=== PATIENT | male | born 1950 | race Caucasian/White ===

== ENCOUNTER 2021-02-17 10:47 | Emergency (ER) | payer OTHER, MEDICARE ==
--- OUTSIDE RECORDS SUMMARY | 2021-02-17 10:50 | XMS REPORT | Continuity of Care Document ---
:1950 Author Organization [facility] t Address [address] [place] [address] Care Team Providers Name Role Phone Bin Jensen MD Primary Care Physician Nesha Attending Clinician [phone] Torito Godwin Attending Clinician Problems Condition Condition Condition Status Onset Resolution Last Treating Co mments Source Name Details Category Date Date Treatment Clinician Date Confusiona Problem Active 2021-02-06 M emoria l state 01:29:54 l (disorder) Charbel n Confusiona l state (disorder) Active Problem 02/06/2021 [facility] Diabetes Problem Active 2021-02-06 Mem oria mellitus 01:29:54 l (disorder) Diabetes He rmann mellitus (disorder) Active Problem 02/06/2021 [facility] Hypertensi Problem Active 2021-02-06 M emoria ve 01:29:54 l disorder, [place] systemic Hypertensi arterial ve (disorder) disorder, systemic arterial (disorder) Active Problem 02/06/2021 [facility] Hyperlipid Problem Active 2021-02-06 M emoria emia 01:29:54 l (disorder) Charbel n Hyperlipid emia (disorder) Active Problem 02/06/2021 [facility] Hypothyroi Problem Active 2021-02-06 M emoria dism 01:29:54 l (disorder) Charbel n Hypothyroi dism (disorder) Active Problem 02/06/2021 [facility] Morbid Problem Active 2021-02-06 Memor ia obesity 01:29:54 l (disorder) Morbid Herm brandyn obesity (disorder) Active Problem 02/06/2021 [facility] Transient Problem Active 2021-02-06 Me moria ischemic 01:29:54 l attack Rodney (disorder) Transient ischemic attack (disorder) Active Problem 02/06/2021 [facility] 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 seizure (disorder) Active Problem 02/06/2021 [facility] Hip pain Problem Active 2021-02-06 Mem oria (finding) 01:29:54 l Hip pain Charbel n (finding) Active Problem 02/06/2021 [facility] Lumbar Problem Active 2021-02-06 Memor ia radiculopa 01:29:54 l thy Lumbar Rodney (disorder) radiculopa thy (disorder) Active Problem 02/06/2021 [facility] Peripheral Problem Active 2021-02-06 M emoria nerve 01:29:54 l disease [place] (disorder) Peripheral nerve disease (disorder) Active Problem 02/06/2021 [facility] Spinal Problem Active 2021-02-06 Memor ia stenosis 01:29:54 l of lumbar Spinal Tea nn region stenosis (disorder) of lumbar region (disorder) Active Problem 02/06/2021 [facility] Allergies, Adverse Reactions, Alerts Allergy Allergy Status Severity Reaction(s) Onset Inactive Treating Comm ents Source Name Type Date Date Clinician Levoflox Propensi Active Anxiety [place] acin In ty to 2-06 [facility] D5w adverse 00:00: st reaction 00 s to drug Penicill Propensi Active Hives, 0 [place] in G ty to Shortness Of 2-06 Meth hilary adverse Breath 00:00: st reaction 00 s to drug penicill penicill Active Memori a in in l [place] Levaquin Levaquin Active Memori a l [place] Social History Social Habit Start Date Stop Date Quantity Comments Source Social History 2020-05-12 2020-05-12 Hillary onofre 21:08:54 21:08:54 Tobacco use and 2019-11-08 2019-11-08 Never used [facility] ethodist exposure 00:00:00 00:00:00 Alcohol intake 2019-11-08 2019-11-08 Lif[facility] thodist 00:00:00 00:00:00 non-drinker (finding) Sex Assigned At [birth year] [facility] ethodist 00:00:00 00:00:00 Smoking Status Start Date Stop Date Source Never smoker Kris hickey Medications Ordered Filled Start Stop Current Ordering Indication Dosage Frequency Signature Comments Components Source Medication Medication Date Date Medication? Clinician (SIG) Name Name pregabalin Yes 75 mg = 1 Me moria 75 MG Oral 3-23 cap, PO, l Capsule 14:28: BID, # 60 Tea nn [Lyrica] 00 cap, 3 Refill(s), Pharmacy: [facility] #[id number], 177.8, cm, 12/02/20 8:24:00 [employer], Height, 133.182, kg, 01/12/21 8:57:00 CDT, Weight QUEtiapine Yes 50 mg = 1 Me moria 50 mg oral 2-10 tab, PO, l tablet, 14:10: Bedtime, # Herm brandyn extended 00 30 tab, 1 release Refill(s) donepezil Yes 10 mg = 1 Mem oria 10 mg oral 2-10 tab, PO, l tablet 14:10: Daily, # [place] 00 30 tab, 0 Refill(s) Vitamin Yes 250 Memoria B-12 250 2-10 microgram l mcg oral 14:10: = 1 tab, Tea nn tablet 00 PO, Daily, 0 Refill(s) Levetiracet Yes 1,000 mg = Memoria am 500 MG 8-13 2 tab, PO, l Oral Tablet 20:45: BID, # 120 Rodney [Keppra] 00 tab, 1 Refill(s), [facility]acy: [id number], 172.72, cm, 05/12/20 15:44:00 CDT, Height, 125.455, kg, 05/12/20 15:44:00 CDT, Weight Levetiracet 2019- Yes 500 mg = 1 Memoria am 500 MG 8-07 tab, PO, l Oral Tablet 20:01: BID, # 180 Rodney [Keppra] 00 tab, 3 Refill(s), Pharmacy: [facility] #[id number], 172.72, cm, 05/12/20 15:44:00 CDT, Height, 125.455, kg, 05/12/20 15:44:00 CDT, Weight Levetiracet 2019-0 No 500 mg = 1 Memoria am 500 MG 8-07 tab, PO, l Oral Tablet 00:02: BID, X 30 H ermann [Keppra] 00 day, # 60 tab, 3 Refill(s), [id number], 172.72, cm, 05/12/20 15:44:00 CDT, Height, 125.455, kg, 05/12/20 15:44:00 CDT, Weight Lorazepam 2019-0 Yes See Memoria 0.5 MG Oral 7-31 Instructio l Tablet 17:49: ns, Take 1 Tea nn [Ativan] 00 tab po 1 hour prior to MRI, may repeat q 15 min. if still anxious, # 5 tab, 0 Refill(s), [id number], 172.72, cm, 05/12/20 15:44:00 CDT, Height, 125.455, kg, 05/12/20 15:44:00 CDT, Weight gabapentin Yes 600 mg = 1 M emoria 600 MG Oral 7-31 tab, PO, l Tablet 17:48: BID, # 60 Charbel n 00 tab, 1 Refill(s), [id number], 172.72, cm, 05/12/20 15:44:00 CDT, Height, 125.455, kg, 05/12/20 15:44:00 CDT, Weight Lorazepam 2019-0 Yes See Memoria 0.5 MG Oral 7-22 Instructio l Tablet 23:06: ns, Take 1 Tea nn [Ativan] 00 tab po 1 hour prior to MRI, may repeat q 15 min. if still anxious, # 5 tab, 0 Refill(s), [id number], 172.72, cm, 05/12/20 15:44:00 CDT, Height, 125.455, kg, 05/12/20 15:44:00 CDT, Weight Levothyroxi 2019-0 Yes 75 Memori a ne Sodium 7-21 microgram l 0.075 MG 20:09: = 1 tab, Tea nn Oral Tablet 00 PO, Daily, [Synthroid] 0 Refill(s) losartan 2020-0 Yes 100 mg = 1 Mem oria 100 mg oral 7-21 tab, PO, l tablet 20:09: Daily, 0 [place] 00 Refill(s) hydrochloro 2020-0 Yes 12.5 mg = M emoria thiazide 7-21 1 tab, PO, l 12.5 mg 20:09: Daily, 0 Charbel n oral tablet 00 Refill(s) Metformin 2020-0 Yes 1,000 mg = Me moria hydrochlori 7-21 1 tab, PO, l de 1000 MG 20:09: BID-Meals, H ermann Oral Tablet 00 # 30 tab, 0 Refill(s) Pravastatin 2020-0 Yes 40 mg = 1 M emoria Sodium 40 7-21 tab, PO, l MG Oral 20:09: Daily, 0 Charbel n Tablet 00 Refill(s) [Pravachol] allopurinol 2020-0 Yes 300 mg = 1 Memoria 300 mg oral 7-21 tab, PO, l tablet 20:09: Daily, 0 [place] 00 Refill(s) Aspirin 81 2020-0 Yes 81 mg = 1 Me moria MG Enteric 7-21 tab, PO, l Coated 20:09: Daily, # [place] Tablet 00 90 tab, 3 Refill(s) Trazodone 2020-0 Yes 50 mg = 1 Mem oria Hydrochlori 7-21 tab, PO, l de 50 MG 20:09: Bedtime, # Her [place] Oral Tablet 00 30 tab, 1 Refill(s) Alprazolam 2020-0 Yes 0.5 mg = 1 M emoria 0.5 MG Oral 7-21 tab, PO, l Tablet 20:09: BID, PRN Rod[place] 00 anxiety, stress, # 20 tab, 0 Refill(s) pravastatin 2020-0 Yes Brianne olivas (PRAVACHOL) 11-28 [facility] 40 MG 08:36: st tablet 57 co-enzyme 2020-0 Yes Kris Q-10 2-06 [facility] (COQ-10) 30 08:36: st mg capsule 57 vit 2020-0 Yes Kris C/E/Zn/thu - [facility] r/lutein/ze 08:36: st axan 57 (PRESERVISI ON AREDS-2 ORAL) cholecalcif 2020-0 Yes rBianne olivas taty, 2-06 [facility] vitamin D3, 08:36: st (VITAMIN 56 D3) 2,000 unit tablet cyanocobala 2020-0 Yes Brianne olivas min, 2-06 [facility] vitamin 08:36: st B-12, 56 (VITAMIN B-12) 1,000 mcg/mL drops hydroCHLORO 2020-0 Yes Brianne n thiazide 2-06 [facility] (MICROZIDE) 08:36: st 12.5 mg 56 capsule levothyroxi 2020-0 Yes Brianne olivas ne 2-06 [facility] (SYNTHROID) 08:36: st 75 mcg 56 tablet losartan 2020-0 Yes [place] (COZAAR) 2-06 [facility] 100 MG 08:36: st tablet 56 magnesium 2020-0 Yes [place] 250 mg 2-06 [facility] tablet 08:36: st 56 metFORMIN 2020-0 Yes [place] (GLUCOPHAGE 2- [facility] ) 1,000 mg 08:36: st tablet 56 omega 2020-0 Yes [place] 3-dha-epa-f 2-06 [facility] queenie oil 08:36: st (FISH OIL) 56 1,000 mg (120 mg-180 mg) capsule ALLOPURINOL 2020-0 Yes Brianne n ORAL 2-06 [facility] 08:36: st 55 aspirin 325 2020-0 Yes Brianne n MG buffered 2-06 [facility] tablet 08:36: st 55 Vital Signs Vital Name Observation Time Observation Value Comments Source Systolic (mm Hg) 2021-01-12 13:57:00 Lon rial [place] Diastolic (mm Hg) 2021[facility]12 [facility]:57[facility]:57[facility] 2021-01-12 13:57:00 [facility] [place] Weight 2021-01-12 13:57:00 [facility] Systolic (mm Hg) 2020-12-02 14:12:00 Lon rial [place] Diastolic (mm Hg) 2020-12-02 14:12:00 [facility] Rodney Heart Rate 2020-12-02 14:12:00 [facility] Height 2020-12-02 14:12:[address] [facility] Weight 2020-12-02 14:12:00 [facility] BMI Calculated 2020-12-02 14:12:00 Memori al [place] Respitory Rate 2020-05-12 20:44:00 Memori al [place] Height 2020-05-12 20:44:00 172.72 cm [facility] [place] Weight 2020-05-12 20:44:00 [facility] [place] BMI Calculated 2020-05-12 20:44:00 Memori al [place] Systolic (mm Hg) 2020-05-12 20:44:00 Lon rial [place] Diastolic (mm Hg) 2020-05-12 20:44:00 Mem orial [place] Heart Rate 2020-05-12 20:44:00 [facility] Procedures This patient has no known procedures. Plan of Care Planned Activity Planned Date Details Comments Source Future Scheduled 2021-05-23 INFLUENZA VACCINE [place] [facility] 00:00:00 [code = INFLUENZA VACCINE] Future Scheduled 2013 65+ PNEUMOCOCCAL [place] [facility] 00:00:00 VACCINE (1 of 1 - PPSV23) [code = 65+ PNEUMOCOCCAL VACCINE (1 of 1 - PPSV23)] Future Scheduled 1998 COLONOSCOPY SCREENING [place] [facility] 00:00:00 [code = COLONOSCOPY SCREENING] Future Scheduled 1998 SHINGLES VACCINES (#1) [place] [facility] 00:00:00 [code = SHINGLES VACCINES (#1)] Future Scheduled 1966 Hepatitis C screening [place] [facility] 00:00:00 (procedure) [code = 344988624] Future Scheduled 1964 COVID-19 VACCINE (1) [place] sim [facility] 00:00:00 [code = COVID-19 VACCINE (1)] Encounters Start End Encounter Admission Attending Care Care Encounter Source Date/Time Date/Time Type Type Clinicians Facility Department ID 2021-02-02 2021-02-03 Outpatient MHMISCHER MHMISCHER [id number] 12:55:54 23:59:59 02 2021-01-27 2021-01-27 [facility] [id number] 00:00:00 00:00:00 Emmy [id number] 2021-01-20 2021-01-21 Outpatient MHMISCHER MHMISCHER [id number] 11:30:19 23:59:59 2021-01-12 2021-01-12 Outpatient Citlali, MHMISCHER MHMISCHER [id number] 09:00:00 23:59:59 Kilo 04 Torito 2020-12-21 2020-12-21 Outpatient Nesha [facility] [id number] 00:00:00 00:00:00 Emmy [id number] 2020-12-21 2020-12-21 Outpatient Nesha [facility] [id number] 00:00:00 00:00:00 Emmy [id number] 2020-12-15 2020-12-16 Outpatient MHMISCHER MHMISCHER [id number] 08:46:31 23:59:59 2020-12-02 2020-12-02 Outpatient Citlali, MHMISCHER MHMISCHER [id number] 08:15:00 23:59:59 Kilo 03 Torito 2020-06-18 2020-06-18 Outpatient Citlali, MHMISCHER MHMISCHER [id number] 08:45:00 08:45:00 Kilo 01 Torito 2020-05-28 2020-05-28 Outpatient Citlali, MHMISCHER MHMISCHER [id number] 10:00:00 23:59:59 Kilo 02 Torito 2020-05-12 2020-05-12 Outpatient Citlali, MHMISCHER MHMISCHER [id number] 16:00:00 23:59:59 Kilo 00 Torito Results This patient has no known results.
[2021-02-17] MEDS ORDERED: HYDROCODONE/APAP 10/325 TAB ONE (13:06)
[2021-02-17] MEDS ORDERED: predniSONE 10 MG TAB ONE (13:19)
[2021-02-17] MEDS ORDERED: FAMOTIDINE 20 MG TAB ONE (13:19)
--- NOTE | 2021-02-17 14:06 | RAD REPORT ---
EXAM DESCRIPTION: RAD - Knee Right 3 View - 02/17/2021 1:59 pm CLINICAL HISTORY: PAIN COMPARISON: <Comparisons> FINDINGS: Mild osteoarthritic changes involves the medial joint space. No fracture or dislocation se en. No significant joint effusion. IMPRESSION: Mild medial compartment space osteoarthritis.
--- NOTE | 2021-02-17 15:57 | ER ---
Nurse's Notes [facility] Name: Omar Benitez Age: 70 yrs Sex: Male : 1950 Arrival Date: 02/17/2021 Time: 10:51 Bed 27 Private MD: Diagnosis: Pain in right knee;Osteoarthritis of knee Presentation: 02/17 11:24 Chief complaint: Patient states: Episodic R knee pain x 2 years. Pt reports that It ss became worse yesterday. Recently had a CT scan of his back with contrast and was told to hold his medication for two days, but now his medication is not helping. Coronavirus screen: Client denies travel out of the [place] in the last 14 days. Ebola Screen: Patient denies exposure to infectious person. Patient denies travel to an Ebola-affected area in the 21 days before illness onset. Initial Sepsis Screen: Does the patient meet any 2 criteria? No. Patient's initial sepsis screen is negative. Does the patient have a suspected source of infection? No. Patient's initial sepsis screen is negative. Risk Assessment: Do you want to hurt yourself or someone else? Patient reports no desire to harm self or others. Onset of symptoms was February 16, 2021. 11:24 Method Of Arrival: Wheelchair ss 11:24 Acuity: ELADIO 4 ss Historical: - Allergies: 11:28 PENICILLINS; ss 11:28 Levaquin; ss - Immunization history:: Adult Immunizations up to date. - Social history:: Smoking status: Patient denies any tobacco usage or history of. Screenin:57 Abuse screen: Denies threats or abuse. Nutritional screening: No deficits noted. kg Tuberculosis screening: No symptoms or risk factors identified. Fall Risk No fall in past 12 months (0 pts). No secondary diagnosis (0 pts). No IV (0 pts). Ambulatory Aid- None/Bed Rest/Nurse Assist (0 pts). Gait- Impaired (20 pts.). Mental Status- Oriented to own ability (0 pts). Assessment: 12:56 General: Appears in no apparent distress. Behavior is calm, cooperative, appropriate kg for age, quiet. Pain: Complains of pain in right knee Pain radiates to right leg Pain currently is 10 out of 10 on a pain scale. at worst was 10 out of 10 on a pain scale. level that patient reports is acceptable is 3 out of 10 on a pain scale. Quality of pain is described as aching, sharp, Pain began suddenly, Is intermittent, Alleviated by medications, rest, Aggravated by increased activity. Neuro: No deficits noted. Respiratory: No deficits noted. GI: No deficits noted. : No deficits noted. EENT: No deficits noted. Derm: No deficits noted. Musculoskeletal: No deficits noted. Vital Signs: 11:24 BP 105 / 80; Pulse 63; Resp 16; Temp 97.1(TE); Pulse Ox 98% on R/A; Weight 108.86 kg; ss Height 5 ft. 10 in. (177.80 cm); Pain 10/10; 14:29 BP 130 / 67; Pulse 60; Resp 18; Pulse Ox 100% on R/A; Pain 3/10; kg 15:45 BP 126 / 98; Pulse 85; Resp 20; Pulse Ox 97% on R/A; Pain 3/10; kg 11:24 Body Mass Index 34.44 (108.86 kg, 177.80 cm) ED Course: 10:51 Patient arrived in ED. mr 11:27 Triage completed. ss 11:28 Arm band placed on right wrist. ss 12:30 Paulino Clement MD is Attending Physician. kdr 12:46 Kathryn Riley is Primary Nurse. kg 12:58 Patient has correct armband on for positive identification. Fall risk band placed. Bed kg in low position. Call light in reach. Side rails up X2. 13:59 Knee Right 3 View XRAY In Process Unspecified. EDMS 16:00 No provider procedures requiring assistance completed. Patient did not have IV access kg during this emergency room visit. Administered Medications: 12:56 Drug: [place] (HYDROcodone-acetaminophen) 10 mg-325 mg 1 tabs Route: PO; kg 14:04 Follow up: Response: No adverse reaction; Pain is decreased kg 13:15 Drug: predniSONE 40 mg Route: PO; kg 14:04 Follow up: Response: No adverse reaction; Marked relief of symptoms kg 13:15 Drug: Pepcid (famotidine) 20 mg Route: PO; kg 14:04 Follow up: Response: No adverse reaction; Marked relief of symptoms kg Output: 14:00 Urine: 220ml (Voided); Total: 220ml. kg Outcome: 15:57 Discharge ordered by . kdr 16:00 Discharged to home via wheelchair, with family. kg 16:00 Condition: improved 16:00 Discharge instructions given to patient, family, Instructed on discharge instructions, follow up and referral plans. Demonstrated understanding of instructions, follow-up care, medications, Prescriptions given X 3. 16:09 Patient left the ED. kg Signatures: Dispatcher [employer] EDMS Paulino Clement MD MD kdr Rivera, Hoa mr Vinita Rose RN RN Kathryn Chamberlain kg
--- NOTE | 2021-02-17 15:58 | EDPHYS ---
Physician Documentation [facility] Name: Omar Benitez Age: 70 yrs Sex: Male : 1950 Arrival Date: 02/17/2021 Time: 10:51 Bed 27 Private MD: ED Physician Paulino Clement HPI: 02/17 12:49 This 70 yrs old Male presents to ER via Wheelchair with complaints of Leg kdr Pain. 12:49 The patient presents with decreased range of motion, pain. The complaints affect the kdr right knee. Context: The problem was sustained at home, resulted from an unknown cause, the patient can partially bear weight, must have assistance, from family, Problem is a result from a previous injury: No. Onset: The symptoms/episode began/occurred Has been intermittent for several years but fir he last two days, it has been moderate to severe. Modifying factors: The symptoms are alleviated by nothing. the symptoms are aggravated by movement, weight bearing. Associated signs and symptoms: The patient has no apparent associated signs or symptoms. Treatment prior to arrival includes: no previous treatment, over the counter medications. Severity of symptoms: At their worst the symptoms were severe, incapacitating, in the emergency department the symptoms have improved, mildly. The patient has experienced similar episodes in the past, multiple times, but today's symptoms are worse. The patient has been recently seen by a physician: had a lumbar myelogram yesterday before the pain became severe.. Historical: - Allergies: 11:28 PENICILLINS; ss 11:28 Levaquin; ss - Immunization history:: Adult Immunizations up to date. - Social history:: Smoking status: Patient denies any tobacco usage or history of. ROS: 02/18 14:38 Constitutional: Negative for fever, chills, and weight loss, Eyes: Negative for injury, kdr pain, redness, and discharge, ENT: Negative for injury, pain, and discharge, Neck: Negative for injury, pain, and swelling, Cardiovascular: Negative for chest pain, palpitations, and edema, Respiratory: Negative for shortness of breath, cough, wheezing, and pleuritic chest pain, Abdomen/GI: Negative for abdominal pain, nausea, vomiting, diarrhea, and constipation, Back: Negative for injury and pain, : Negative for injury, bleeding, discharge, and swelling, Skin: Negative for injury, rash, and discoloration, Neuro: Negative for headache, weakness, numbness, tingling, and seizure activity. Psych: Negative for depression, anxiety, suicide ideation, homicidal ideation, and hallucinations, Allergy/Immunology: Negative for hives, rash, and allergies, Endocrine: Negative for neck swelling, polydipsia, polyuria, polyphagia, and marked weight changes, Hematologic/Lymphatic: Negative for swollen nodes, abnormal bleeding, and unusual bruising. MS/extremity: Positive for decreased range of motion, pain, of the right knee, Negative for contusion, deformity, ecchymosis, erythema, laceration, paresthesias, swelling. Exam: 14:38 Constitutional: This is a well developed, well nourished patient who is awake, alert, kdr and in no acute distress. Head/Face: Normocephalic, atraumatic. Eyes: Pupils equal round and reactive to light, extra-ocular motions intact. Lids and lashes normal. Conjunctiva and sclera are non-icteric and not injected. Cornea within normal limits. Periorbital areas with no swelling, redness, or edema. Neck: Trachea midline, no thyromegaly or masses palpated, and no cervical lymphadenopathy. Supple, full range of motion without nuchal rigidity, or vertebral point tenderness. No Meningismus. Chest/axilla: Normal chest wall appearance and motion. Nontender with no deformity. No lesions are appreciated. Cardiovascular: Regular rate and rhythm with a normal S1 and S2. No gallops, murmurs, or rubs. Normal PMI, no JVD. No pulse deficits. Respiratory: Lungs have equal breath sounds bilaterally, clear to auscultation and percussion. No rales, rhonchi or wheezes noted. No increased work of breathing, no retractions or nasal flaring. Abdomen/GI: Soft, non-tender, with normal bowel sounds. No distension or tympany. No guarding or rebound. No evidence of tenderness throughout. Back: No spinal tenderness. No costovertebral tenderness. Full range of motion. Skin: Warm, dry with normal turgor. Normal color with no rashes, no lesions, and no evidence of cellulitis. Neuro: Awake and alert, GCS 15, oriented to person, place, time, and situation. Cranial nerves II-XII grossly intact. Motor strength 5/5 in all extremities. Sensory grossly intact. Cerebellar exam normal. Normal gait. Psych: Awake, alert, with orientation to person, place and time. Behavior, mood, and affect are within normal limits. 14:38 Musculoskeletal/extremity: Extremities: grossly normal except: noted in the right knee: decreased ROM, pain. Vital Signs: 02/17 11:24 BP 105 / 80; Pulse 63; Resp 16; Temp 97.1(TE); Pulse Ox 98% on R/A; Weight 108.86 kg; ss Height 5 ft. 10 in. (177.80 cm); Pain 10/10; 14:29 BP 130 / 67; Pulse 60; Resp 18; Pulse Ox 100% on R/A; Pain 3/10; kg 15:45 BP 126 / 98; Pulse 85; Resp 20; Pulse Ox 97% on R/A; Pain 3/10; kg 11:24 Body Mass Index 34.44 (108.86 kg, 177.80 cm) ss MDM: 15:57 Patient medically screened. kdr 02/18 14:38 Data reviewed: vital signs, nurses notes, radiologic studies. Counseling: I had a kdr detailed discussion with the patient and/or guardian regarding: the historical points, exam findings, and any diagnostic results supporting the discharge/admit diagnosis, radiology results, the need for outpatient follow up. 02/17 12:48 Order name: Knee Right 3 View XRAY; Complete Time: 15:52 kdr Administered Medications: 02/17 12:56 Drug: [place] (HYDROcodone-acetaminophen) 10 mg-325 mg 1 tabs Route: PO; kg 14:04 Follow up: Response: No adverse reaction; Pain is decreased kg 13:15 Drug: predniSONE 40 mg Route: PO; kg 14:04 Follow up: Response: No adverse reaction; Marked relief of symptoms kg 13:15 Drug: Pepcid (famotidine) 20 mg Route: PO; kg 14:04 Follow up: Response: No adverse reaction; Marked relief of symptoms kg Disposition: 02/17/21 15:57 Discharged to Home. Impression: Pain in right knee, Osteoarthritis of knee. - Condition is Stable. - Discharge Instructions: Arthritis, Knee Pain, Ueqh-[id number], Joint Pain, [id number]. - Prescriptions for Ibuprofen 800 mg Oral Tablet - take 1 tablet by ORAL route every 12 hours As needed take with food; 20 tablet. Tylenol- Codeine #3 300-30 mg Oral Tablet - take 2 tablets by ORAL route every 4-6 hours As needed Take in the evening for pain prior to sleep; 12 tablet. Medrol (Nik) 4 mg Oral Tablets, Dose Pack - take 1 tablet by ORAL route as directed - follow package instructions; 1 packet. - Medication Reconciliation Form, Thank You Letter, Prescription Opioid Use form. - Follow up: Private Physician; When: 2 - 3 days; Reason: If symptoms return, Further diagnostic work-up, Recheck today's complaints, Continuance of care, Re-evaluation by your physician. - Problem is new. - Symptoms have improved. Signatures: Dispatcher [employer] EDMS Paulino Clement MD MD kdr Vinita Rose RN RN ss Kathryn Riley kg Corrections: (The following items were deleted from the chart) 16:09 15:57 02/17/2021 15:57 Discharged to Home. Impression: Pain in right knee; kg Osteoarthritis of knee. Condition is Stable. Forms are Medication Reconciliation Form, Thank You Letter, Antibiotic Education, Prescription Opioid Use. Follow up: Private Physician; When: 2 - 3 days; Reason: If symptoms return, Further diagnostic work-up, Recheck today's complaints, Continuance of care, Re-evaluation by your physician. Problem is new. Symptoms have improved. kdr
[2021-02-17 16:22] VITALS: TEMP 97.1
[2021-02-17 16:25] VITALS: BP 126/98; O2SAT 97
== END 2021-02-17 16:09 | disposition home or self-care (01) ==
LOC: ER 10:47
DX: M17.11 Unilateral primary osteoarthritis, right knee (principal); Z88.0 Allergy status to penicillin; Z88.1 Allergy status to other antibiotic agents
CPT/HCPCS: 99283; J7512

== ENCOUNTER → 2023-12-17 | Emergency (ER) | payer OTHER, MEDICARE ==
--- NOTE | 2023-12-17 20:52 | RAD REPORT ---
EXAM DESCRIPTION: CT - Head C Spine Mpr Wo Con - 12/17/2023 8:32 pm CLINICAL HISTORY: Head and neck injury status post fall. Head and neck pain COMPARISON: [address] TECHNIQUE: Computed axial tomography of the head and cervical spine was obtained. Sagittal and coronal reconstruction was performed. All CT scans are performed using dose optimization technique as appropriate and may include automated exposure control or mA/KV adjustment according to patient size. FINDINGS: An intracranial bleed is not seen. The ventricles are normal in caliber. No significant hypodensity within the brain. An extra-axial fluid collection is not noted. Fluid within the visualized sinuses and mastoids is not seen A cervical fracture is not visualized. No dislocation is noted. Prominent ossification anterior and p osterior longitudinal ligaments Mild anterior subluxation C6 on C7 IMPRESSION: No acute intracranial abnormality is seen. A cervical fracture is not visualized. If the patient continues to have symptoms to suggest intracranial /spinal cord pathology then MRI wou ld be recommended
--- NOTE | 2023-12-17 20:56 | RAD REPORT ---
EXAM DESCRIPTION: RAD - Pelvis - 12/17/2023 8:22 pm CLINICAL HISTORY: Pelvic pain status post injury FINDINGS: No fracture or dislocation is seen. Bones are osteoporotic Marked osteoarthritis left hip If the patient continues to have symptoms to suggest an occult fracture then MRI would be recommended
--- NOTE | 2023-12-17 23:21 | RAD REPORT ---
EXAM DESCRIPTION: Alexander Single View12/17/2023 8:23 pm CLINICAL HISTORY: Chest pain COMPARISON: none FINDINGS: The lungs appear clear of acute infiltrate. The heart is mildly enlarged IMPRESSION: No acute abnormalities displayed
--- NOTE | 2023-12-17 23:24 | EDPHYS ---
Physician Documentation [facility] Name: Omar Benitez Age: 73 yrs Sex: Male : 1950 Arrival Date: 12/17/2023 Time: 19:54 Bed 2 Private MD: ED Physician Frank Aparicio HPI: 12/17 20:06 This 73 yrs old Male presents to ER via Unassigned with complaints of fall, possible ec2 head injury. 20:07 Patient arrives today for evaluation after ground-level fall. Patient reports that he ec2 had a fall and may have hit his head. Reported EMS that he had maybe some left hip pain. No LOC reported, no blood thinners documented. Patient with history of dementia otherwise. Denies any chest pain or difficulty breathing, denies abdominal pain, denies any nausea or vomiting. He states overall he feels at his normal level however wanted to be checked out.. Historical: - Allergies: 20:12 Levaquin; tm6 20:12 PENICILLINS; tm6 - PMHx: 20:12 ptsd; Diabetes mellitus; Hypertensive disorder; Hypercholesterolemia; Cellulitis; tm6 Hypothyroidism; insomnia; Osteoarthritis; - Immunization history:: Adult Immunizations up to date. - Social history:: Smoking status: Patient denies any tobacco usage or history of. Patient/guardian denies using alcohol. ROS: 20:07 Constitutional: as per hpi ec2 Exam: 20:07 Constitutional: GEN: No acute distress HEENT: -Head: no deformities -Eyes: EOMI CV: ec2 regular rate LUNGS: no respiratory distress ABD: non-tender SKIN: no wounds appreciated MSK: No C/T/L spine deformities RUE w/o bony deformity LUE w/o bony deformity RLE w/o bony deformity LLE w/o bony deformity NEURO: moves all extremities equally Vital Signs: 20:11 BP 101 / 87; Pulse 57; Resp 20; Temp 98(TE); Pulse Ox 98% on R/A; Weight 107.5 kg; tm6 Height 5 ft. 8 in. ; Pain 10/10; 21:33 BP 113 / 97; Pulse 49; Pulse Ox 97% on R/A; Pain 0/10; tm6 23:39 BP 101 / 62; Pulse 47; Resp 19; Temp 97.5(TE); Pulse Ox 99% on R/A; Pain 0/10; tm6 20:11 Body Mass Index 36.04 (107.50 kg, 172.72 cm) tm6 20:11 Pain Scale: Adult tm6 21:33 Pain Scale: Adult tm6 23:39 Pain Scale: Adult tm6 MDM: 20:02 Patient medically screened. ec2 20:07 ED course: Patient arrives today for evaluation after ground-level fall. Examination ec2 remarkable for well-appearing nontoxic individual is otherwise in no acute distress with a reassuring traumatic examination. Will obtain CT scan of the head and C-spine given the unknown circumstances as well as a chest and pelvis x-ray. Ultimately patient has no specific concerns at this time, no reported prodromal symptoms, denies any chest pain or difficulty breathing, or suspicion for ACS or PE or dissection as well.. 22:21 Data reviewed: vital signs. ED course: CT scan of the head and C-spine showed no acute ec2 traumatic process. Pelvis x-ray shows arthritis without bony fracture. . 23:12 ED course: Chest x-ray shows no acute intrathoracic process. Patient well-appearing and ec2 asking to go home, will discharge home. Return precautions given.. 12/17 20:06 Order name: CT Head C Spine; Complete Time: 22:20 ec2 12/17 20:06 Order name: Pelvis XRAY; Complete Time: 22:20 ec2 12/17 20:06 Order name: CXR XRAY; Complete Time: 23:23 ec2 Administered Medications: No medications were administered Disposition Summary: 12/17/23 23:23 Discharge Ordered Notes: Location: Home ec2 Condition: Stable ec2 Diagnosis - Fall on same level, unspecified ec2 Followup: ec2 - With: Private Physician - When: - Reason: Re-evaluation by your physician Discharge Instructions: - Discharge Summary Sheet ec2 - Fall Prevention in the Home, Adult, [id number] ec2 Forms: - Medication Reconciliation Form ec2 - Thank You Letter ec2 - Antibiotic Education ec2 - Prescription Opioid Use ec2 - Patient Portal Instructions ec2 - Leadership Thank You Letter ec2 Signatures: Dispatcher [employer] Frank Worthington MD MD ec2 Mansi Cedeno RN RN tm6
--- NOTE | 2023-12-17 23:24 | ER ---
Nurse's Notes [facility] Name: Omar Benitez Age: 73 yrs Sex: Male : 1950 Arrival Date: 12/17/2023 Time: 19:54 Bed 2 Private MD: Diagnosis: Fall on same level, unspecified Presentation: 12/17 20:11 Chief complaint: EMS states: unwitnessed fall at [facility]. Patient states he hit his tm6 head. No complaint of pain in head. Complaining of pain in right hip. Coronavirus screen: Vaccine status: Patient reports receiving the 2nd dose of the covid vaccine. Ebola Screen: Patient negative for fever greater than or equal to 101.5 degrees Fahrenheit, and additional compatible Ebola Virus Disease symptoms Patient denies exposure to infectious person. Patient denies travel to an Ebola-affected area in the 21 days before illness onset. No symptoms or risks identified at this time. Initial Sepsis Screen: Does the patient meet any 2 criteria? No. Patient's initial sepsis screen is negative. Does the patient have a suspected source of infection? No. Patient's initial sepsis screen is negative. Risk Assessment: Do you want to hurt yourself or someone else? Patient reports no desire to harm self or others. Onset of symptoms was December 17, 2023. 20:11 Method Of Arrival: EMS: [facility] tm6 20:11 Acuity: ELADIO 3 tm6 Triage Assessment: 20:12 General: Appears in no apparent distress. Behavior is calm, cooperative. Pain: tm6 Complains of pain in right hip Pain currently is 10 out of 10 on a pain scale. Quality of pain is described as aching, Pain began 1 hour ago. EENT: No signs and/or symptoms were reported regarding the EENT system. Neuro: Level of Consciousness is awake, alert, obeys commands, Oriented to person, dementia. Cardiovascular: Capillary refill < 3 seconds Patient's skin is warm and dry. Respiratory: Airway is patent Respiratory effort is even, unlabored, Respiratory pattern is regular, symmetrical. GI: Abdomen is flat, non-distended. GI: No signs and/or symptoms were reported involving the gastrointestinal system. : No signs and/or symptoms were reported regarding the genitourinary system. Derm: No signs and/or symptoms reported regarding the dermatologic system. Musculoskeletal: Reports pain in right hip unwitnessed fall. Historical: - Allergies: 20:12 Levaquin; tm6 20:12 PENICILLINS; tm6 - PMHx: 20:12 ptsd; Diabetes mellitus; Hypertensive disorder; Hypercholesterolemia; Cellulitis; tm6 Hypothyroidism; insomnia; Osteoarthritis; - Immunization history:: Adult Immunizations up to date. - Social history:: Smoking status: Patient denies any tobacco usage or history of. Patient/guardian denies using alcohol. Screenin:17 [facility] ED Fall Risk Assessment (Adult) History of falling in the last 3 months, tm6 including since admission Yes- single mechanical fall (1 pt) Confusion or Disorientation Yes (5 pts) Intoxicated or Sedated No (0 pts) Impaired Gait No (0 pts) Mobility Assist Device Used No (0 pt) Altered Elimination No (0 pt) Score/Fall Risk Level 3 or more points = High Risk Oriented to surroundings, Maintained a safe environment. Abuse screen: Denies threats or abuse. Denies injuries from another. Nutritional screening: No deficits noted. Tuberculosis screening: No symptoms or risk factors identified. Assessment: 20:17 Reassessment: see triage assessment. tm6 21:11 Reassessment: Pt incontinent of urine. Pt cleaned, new brief applied. tl4 21:50 Reassessment: Patient appears in no apparent distress at this time. No changes from tm6 previously documented assessment. Patient and/or family updated on plan of care and expected duration. Pain level reassessed. Patient is alert, oriented x 3, equal unlabored respirations, skin warm/dry/pink. 22:52 Reassessment: Patient and/or family updated on plan of care and expected duration. Pain tm6 level reassessed. Patient is alert, oriented x 3, equal unlabored respirations, skin warm/dry/pink. 23:39 Reassessment: Patient appears in no apparent distress at this time. No changes from tm6 previously documented assessment. Patient and/or family updated on plan of care and expected duration. Pain level reassessed. Patient is alert, oriented x 3, equal unlabored respirations, skin warm/dry/pink. 23:40 Reassessment: report called to [facility], given to Ambika. tm6 Vital Signs: 20:11 BP 101 / 87; Pulse 57; Resp 20; Temp 98(TE); Pulse Ox 98% on R/A; Weight 107.5 kg; tm6 Height 5 ft. 8 in. ; Pain 10/10; 21:33 BP 113 / 97; Pulse 49; Pulse Ox 97% on R/A; Pain 0/10; tm6 23:39 BP 101 / 62; Pulse 47; Resp 19; Temp 97.5(TE); Pulse Ox 99% on R/A; Pain 0/10; tm6 20:11 Body Mass Index 36.04 (107.50 kg, 172.72 cm) tm6 20:11 Pain Scale: Adult tm6 21:33 Pain Scale: Adult tm6 23:39 Pain Scale: Adult tm6 ED Course: 19:58 Patient arrived in ED. rv1 20:02 Frank Aparicio MD is Attending Physician. ec2 20:11 Mansi Cedeno, RN is Primary Nurse. tm6 20:12 Triage completed. tm6 20:17 Arm band placed on right wrist. tm6 20:17 Patient has correct armband on for positive identification. Bed in low position. Call tm6 light in reach. Side rails up X2. Provided Education on: plan of care. Client placed on continuous cardiac and pulse oximetry monitoring. NIBP monitoring applied. Pulse ox on. NIBP on. Door closed. Noise minimized. Warm blanket given. 20:24 Pelvis XRAY In Process Unspecified. EDMS 20:24 CXR XRAY In Process Unspecified. EDMS 20:33 CT Head C Spine In Process Unspecified. EDMS 23:39 No provider procedures requiring assistance completed. Patient did not have IV access tm6 during this emergency room visit. Administered Medications: No medications were administered Medication: 20:17 VIS not applicable for this client. tm6 Outcome: 23:23 Discharge ordered by . ec2 23:39 Discharged to home via wheelchair, with family, tm6 23:39 Condition: stable 23:39 Discharge instructions given to patient, family, Instructed on discharge instructions, follow up and referral plans. Demonstrated understanding of instructions, follow-up care, 23:40 Patient left the ED. tm6 Signatures: Dispatcher [employer] ED Yifan Sonja rv1 Frank Aparicio MD MD ec2 Mansi Cedeno, RN RN tm6 LogdaHarpreet RN RN tl4
[2023-12-18 01:38] VITALS: BP 101/62; TEMP 97.5; O2SAT 99
== END ==
LOC: ER 19:54
DX: M25.551 Pain in right hip (principal); W18.30XA Fall on same level, unspecified, initial encounter; E11.9 Type 2 diabetes mellitus without complications; I10 Essential (primary) hypertension; Z88.0 Allergy status to penicillin; Z88.1 Allergy status to other antibiotic agents
CPT/HCPCS: 70450; 71045; 72125; 72170; 99283

== ENCOUNTER 2024-01-01 18:00 | Inpatient (IN) | payer OTHER, MEDICARE ==
--- NOTE | 2024-01-01 20:07 | RAD REPORT ---
EXAM DESCRIPTION: Alexander Single View01/01/2024 7:49 pm CLINICAL HISTORY: Chest pain COMPARISON: November 2023 FINDINGS: The lungs appear clear of acute infiltrate. The heart is probably mildly enlarged IMPRESSION: No acute abnormalities displayed
--- NOTE | 2024-01-01 20:25 | RAD REPORT ---
EXAM DESCRIPTION: USExtrem Venous W Compress Bil01/01/2024 8:13 pm CLINICAL HISTORY: Leg swelling COMPARISON: 2019 FINDINGS: The common femoral, superficial femoral, greater saphenous, popliteal and posterior tibial veins bilaterally are compressible and demonstrate augmentation. Doppler demonstrates good flow. Grayscale, color and spectral analysis performed on all vessels IMPRESSION: No evidence of deep venous thrombosis involving either lower extremity.
[2024-01-01 21:03] LABS: Absolute Eosinophils 0.2 K/uL (0-0.5); Absolute Lymphocytes (CBC) 0.6 K/uL (0.7-4.9); Absolute Monocytes 0.6 K/uL (0.1-1.3); Basophils % 0.5 % (0-1.3); Eosinophils % 3.2 % (0-4.4); Hematocrit 37.7 % (39.6-49.0); Hemoglobin 13.1 g/dL (13.6-17.9); Lymphocytes % 11.5 % (15.3-44.8); MCH 34.9 pg (27.0-35.0); MCHC 34.8 g/dL (32.0-36.0); MCV 100.3 fL (80-100); MPV 9.8 fL (7.6-11.3); Monocytes % 11.4 % (3.3-12.3); Neutrophils % 73.4 % (41.7-73.7); Platelets 143 thou/uL (152-406); RBC Red Blood Cell Count 3.76 M/uL (4.33-5.43); Red Cell Distribution Width 13.5 % (12.1-15.2)
[2024-01-01 21:49] LABS: Anion Gap 8.5 mEq/L (5.0-15.0); Potassium 3.5 mEq/L (3.5-5.1)
[2024-01-01] MEDS ORDERED: FUROSEMIDE 40 MG/4 ML VIAL ONE (22:33)
[2024-01-01 23:27] LABS: Specific Gravity 1.013 (1.005-1.030); Sqamous Epithelial None Seen /HPF (None Seen); Urine Bacteria None Seen /HPF (<20); Urine Bilirubin NEGATIVE (Negative); Urine Blood Negative (Negative); Urine Clarity Clear (Clear); Urine Color Light-Yellow (Yellow); Urine Culture Reflex Order NOT NEEDED; Urine Glucose NEGATIVE (Negative); Urine Ketones NEGATIVE (Negative); Urine Micro Reflex YN NO BILL MICROSCOPIC; Urine Nitrite NEGATIVE (Negative); Urine Protein NEGATIVE (Negative); Urine RBC <5 /HPF (None Seen); Urine Sperm Present (None Seen); Urine Urobilinogen Normal (Normal); Urine WBC <5 /HPF (<5)
--- NOTE | 2024-01-02 00:06 | EDPHYS ---
Physician Documentation [facility] Name: Omar Benitez Age: 73 yrs Sex: Male : 1950 Arrival Date: 01/01/2024 Time: 18:00 Bed 15 Private MD: ED Physician Frank Aparicio HPI: 12/31 18:51 This 73 yrs old Male presents to ER via Wheelchair with complaints of Urinary Problem, sb4 Leg Swelling. 18:51 Patient lives in assisted living, has dementia. Son states that he has been more sb4 confused lately, says that he has burning with urination, and also has swelling on his bilateral lower extremities, worse in his right leg. He does endorse pain with walking. Denies any redness or warmth. No prior history of clots. States that his legs have been swollen like this in the past but they have never been given a clear answer. Denies any history of congestive heart failure or kidney. Historical: - Allergies: 18:45 Levaquin; kd3 18:45 PENICILLINS; kd3 - PMHx: 18:45 Cellulitis; diabetes mellitus; diabetes mellitus; Hypercholesterolemia; kd3 Hypercholesterolemia; Hypertensive disorder; Hypothyroidism; Hypothyroidism; insomnia; insomnia; osteoarthritis; PTSD; - Immunization history:: Adult Immunizations up to date. - Social history:: Smoking status: unknown. ROS: 01/01 00:07 Constitutional: Negative for fever, chills, and weight loss, sb4 Cardiovascular: Positive for edema, MS/extremity: Positive for pain, of the right leg and left leg, All other systems are negative, 00:07 Neuro: Positive for weakness, sb4 Exam: 00:07 Head/Face: Normocephalic, atraumatic. Eyes: Extra-ocular motions intact. Periorbital sb4 areas with no swelling, redness, or edema. ENT: Mucous membranes moist. Cardiovascular: Regular rate and rhythm with a normal S1 and S2. Respiratory: Lungs have equal breath sounds bilaterally, clear to auscultation and percussion. No rales, rhonchi or wheezes noted. No increased work of breathing, no retractions or nasal flaring. Abdomen/GI: Soft, non-tender, no distension. Skin: Warm, dry with normal turgor. Normal color with no rashes, no lesions, and no evidence of cellulitis. 00:07 Constitutional: The patient appears in no acute distress, alert, awake, 00:07 Cardiovascular: Edema: 3+ edema to level of left leg and right leg, 00:07 Neuro: Mentation: Vital Signs: 12/31 18:43 BP 119 / 85; Pulse 59; Resp 16; Temp 97.9(O); Pulse Ox 99% ; Weight 99.79 kg; kd3 20:39 BP 110 / 67; Pulse 59; Resp 16; Pulse Ox 100% on R/A; kd3 21:13 BP 101 / 77; Pulse 55; Resp 18; Pulse Ox 100% ; nj1 22:15 BP 108 / 51; Pulse 49; Resp 17; Pulse Ox 100% ; jj7 23:15 BP 118 / 93; Pulse 55; Resp 17; Pulse Ox 97% on R/A; ha1 01/01 01:00 BP 141 / 73; Pulse 55; Resp 17 S; Pulse Ox 96% on R/A; ha1 MDM: 12/31 18:37 Patient medically screened. 4 22:48 Awaiting: labs results, urine, patient has not provided sample. 4 01/01 00:04 Data reviewed: vital signs, nurses notes, lab test result(s), radiologic studies, I sb4 have discussed the patient's presentation/case with the attending Emergency Department Physician; and as a result, I will admit patient. 00:07 Counseling: I had a detailed discussion with the patient and/or guardian regarding the 4 historical points, exam findings, and any diagnostic results supporting the discharge/admit diagnosis, lab results, radiology results, the need for further work-up and treatment in the hospital. 12/31 18:51 Order name: Basic Metabolic Panel; Complete Time: 21:51 [facility] 12/31 18:51 Order name: CBC with Diff; Complete Time: 21:19 [facility] 12/31 18:51 Order name: NT PRO-BNP; Complete Time: 21:51 4 12/31 18:51 Order name: UAM; Complete Time: 23:27 4 12/31 18:51 Order name: XRAY Chest (1 view); Complete Time: 20:11 4 12/31 18:51 Order name: Extrem Venous W Compression Wilfred US; Complete Time: 20:28 [facility] 03/12 10:42 Order name: CT EDMS 12/31 18:51 Order name: IV Saline Lock; Complete Time: 21:13 sb4 12/31 18:51 Order name: Labs collected and sent; Complete Time: 21:13 sb4 12/31 18:51 Order name: O2 Per Protocol; Complete Time: 21:13 sb4 12/31 18:51 Order name: O2 Sat Monitoring; Complete Time: 21:13 sb4 12/31 18:51 Order name: Misc. Order: place patient in gown; Complete Time: 21:13 sb4 01/01 00:05 Order name: EKG - Nurse/Tech; Complete Time: 01:38 sb4 01/01 01:02 Order name: [place]; Complete Time: : 7 EC:37 Rate is 47 beats/min. Rhythm is regular, Sinus bradycardia with Right bundle branch sb4 block. WA interval is prolonged at 226 msec. QRS interval is normal at 150 msec. QT interval is prolonged at [address] changes noted. Clinical impression: 1st degree heart block and Sinus bradycardia. Interpreted by me. Reviewed by me. Administered Medications: 12/31 22:39 Drug: Furosemide IVP 20 mg IVP once; give over 2 minutes Route: IVP; Site: left forearm;jj7 01/01 01:10 Drug: Ativan IVP 0.5 mg IVP once Route: IVP; Site: left forearm; ha1 Disposition Summary: 01/02/24 00:05 Hospitalization Ordered Notes: Hospitalization Status: Observation sb4 Provider: John Oden sb4 Condition: Fair sb4 Problem: new sb4 Symptoms: are unchanged sb4 Bed/Room Type: Standard sb4 Location: Telemetry/MedSurg (observation)(01/02/24 16:03) [facility] Room Assignment: 410(01/02/24 16:03) [facility] Diagnosis - Edema, unspecified sb4 - Weakness sb4 Discharge Instructions: - Discharge Summary Sheet sb4 - Peripheral Edema sb4 Forms: - Medication Reconciliation Form sb4 - SBAR form sb4 - Leadership Thank You Letter sb4 Addendum: 01/04/2024 16:54 I was immediately available for consultation during this patient's visit. I did not e c2 personally see the patient or discuss the patient with the JANICE. . Signatures: Dispatcher [employer] EDAna Reed RN RN kd3 Mahi Ca RN RN ha1 Patricia Palomino RN RN jjDahlia De Guzman PA-C PA-C 4 Vikki Sheppard RN RN cm10 [facility] Frank Aparicio MD MD ec2 Corrections: (The following items were deleted from the chart) 01/01 02:21 00:05 Telemetry/MedSurg (observation) sb4 cm10 02:21 00:05 sb4 cm10 16:03 02:21 [facility] ER HOLD cm10 mc5 16:03 02:21 ERHOLD- cm10 mc5
--- NOTE | 2024-01-02 00:06 | ER ---
Nurse's Notes [facility] Name: Omar Benitez Age: 73 yrs Sex: Male : 1950 Arrival Date: 01/01/2024 Time: 18:00 Bed 15 Private MD: Diagnosis: Edema, unspecified;Weakness Presentation: 12/31 18:45 Coronavirus screen: Vaccine status: Patient reports receiving the 2nd dose of the covid kd3 vaccine. Ebola Screen: No symptoms or risks identified at this time. Initial Sepsis Screen: Does the patient meet any 2 criteria? No. Patient's initial sepsis screen is negative. Does the patient have a suspected source of infection? No. Patient's initial sepsis screen is negative. Risk Assessment: Do you want to hurt yourself or someone else? Patient reports no desire to harm self or others. 18:45 Method Of Arrival: Wheelchair kd3 18:45 Chief complaint: Patient's son or daughter states: His leg is very swollen. On Monday kd3 his assisted living place asked us to buy him a wheelchair, his mobility has been declining. He has had swelling like this before. His [facility] doctor told us to come here to get a scan and check it out. He also told me that it gonzalez when he urinates. His dementia seems to be getting worse. Onset of symptoms was January 01, 2024. 18:45 Acuity: ELADIO 3 kd3 Triage Assessment: 18:45 General: Appears in no apparent distress. Behavior is calm, cooperative. Pain: Denies kd3 pain. Historical: - Allergies: 18:45 Levaquin; kd3 18:45 PENICILLINS; kd3 - PMHx: 18:45 Cellulitis; diabetes mellitus; diabetes mellitus; Hypercholesterolemia; kd3 Hypercholesterolemia; Hypertensive disorder; Hypothyroidism; Hypothyroidism; insomnia; insomnia; osteoarthritis; PTSD; - Immunization history:: Adult Immunizations up to date. - Social history:: Smoking status: unknown. Screenin/12 01:00 Abuse screen: Denies threats or abuse. Denies injuries from another. Nutritional ha1 screening: No deficits noted. Tuberculosis screening: No symptoms or risk factors identified. 01:00 [facility] ED Fall Risk Assessment (Adult) History of falling in the last 3 months, ha1 including since admission Yes- single mechanical fall (1 pt) Confusion or Disorientation Yes (5 pts). Assessment: 12/31 21:05 General: Appears in no apparent distress. comfortable, Behavior is restless, Attempting nj1 to get out of bed, redirected by staff and family.. 21:05 Pain: Unable to use pain scale. Does not appear to understand pain scale. Neuro: Level nj1 of Consciousness is awake, alert, confused, Oriented to person. Neuro: Gait is Does not take steps to bed when assisted from wheelchair to it.. Cardiovascular: Patient's skin is warm and dry. Respiratory: Airway is patent Respiratory effort is even, unlabored. Musculoskeletal: Swelling present in right leg. 21:16 Reassessment: Needs continuous re direction when attempting to apply blood pressure nj1 cuff and pulse oxymeter. 21:20 General: Appears comfortable, Behavior is anxious, restless. Neuro: Carpio ha1 Agitation-Sedation Scale (RASS): +1 Restless Level of Consciousness is awake, confused, Weakness Gait is unsteady. Neuro: UNCOOPERATIVE, REMOVING MONITORING DEVICES. ATTEMPTING TO GET OUT OF BED . Cardiovascular: Capillary refill < 3 seconds Patient's skin is warm and dry. Respiratory: Airway is patent Respiratory effort is even, unlabored, Respiratory pattern is regular, symmetrical. 22:15 Reassessment: ASSISTED PT TO USE URINAL. FAMILY AT BEDSIDE. jj7 22:20 Reassessment: ATTEMPTING TO GET OUT OF BED. SIDE RAILS X2. FAMILY MEMBERS AT BEDSIDE. ha1 NOTIFIED CARE PROVIDER. 23:20 Reassessment: Patient and/or family updated on plan of care and expected duration. Pain ha1 level reassessed. 23:20 Reassessment: urinating removed brief. new brief was applied. Respiratory: Airway is ha1 patent Respiratory effort is even, unlabored, Respiratory pattern is regular, symmetrical. 01/01 01:15 Reassessment: EKG delayed due to patient being uncooperative. Notified care provider. ha1 01:15 Reassessment: EYES CLOSED. ha1 01:38 General: Appears comfortable, Behavior is calm. Respiratory: Airway is patent ha1 Respiratory effort is even, unlabored, Respiratory pattern is regular, symmetrical. 17:21 General: Spoke with Paty housekeeping and laundry team leader, and she requested more time as the [facility] receiving nurse is getting two admits back to back. . 17:21 General: Spoke with Paty, housekeeping and laundry team leader, and she confirmed that they are ready for me1 us to bring the patient up to room 410.. Vital Signs: 12/31 18:43 BP 119 / 85; Pulse 59; Resp 16; Temp 97.9(O); Pulse Ox 99% ; Weight 99.79 kg; kd3 20:39 BP 110 / 67; Pulse 59; Resp 16; Pulse Ox 100% on R/A; kd3 21:13 BP 101 / 77; Pulse 55; Resp 18; Pulse Ox 100% ; nj1 22:15 BP 108 / 51; Pulse 49; Resp 17; Pulse Ox 100% ; jj7 23:15 BP 118 / 93; Pulse 55; Resp 17; Pulse Ox 97% on R/A; ha1 01/01 01:00 BP 141 / 73; Pulse 55; Resp 17 S; Pulse Ox 96% on R/A; ha1 ED Course: 12/31 18:02 Patient arrived in ED. rg4 18:20 Dahlia Franco PA-C is PHCP. sb4 18:20 Frank Aparicio MD is Attending Physician. sb4 18:45 Arm band placed on left wrist. kd3 18:47 Triage completed. kd3 19:50 XRAY Chest (1 view) In Process Unspecified. EDMS 19:59 Inserted saline lock: 22 gauge in left forearm, using aseptic technique. Blood ha1 collected. 20:15 Extrem Venous W Compression Wilfred US In Process Unspecified. EDMS 20:53 Alea Guerrero, RN is Primary Nurse. nj1 22:10 Report given to HEAVEN SANTAMARIA. nj1 22:10 Patient has correct armband on for positive identification. Bed in low position. Call ha1 light in reach. Side rails up X 1. 23:00 Assisted with urinal. Repositioned patient. Cleaned of incontinence. Linen changed. ha1 01/01 00:05 John Oden MD is Hospitalizing Provider. sb4 00:50 Assisted with urinal. Cleaned of incontinence. Linen changed. ha1 01:00 Provided Education on: provided education to family members on fall prevention . ha1 01:00 No provider procedures requiring assistance completed. ha1 01:30 Client placed on continuous cardiac and pulse oximetry monitoring. NIBP monitoring jj7 applied. Door closed. Lights dimmed. Warm blanket given. Repositioned patient. Cleaned of incontinence. Linen changed. GOWN CHANGED. 01:30 Patient tolerated poorly. PT REFUSED CHANDRA WHILE BEING INSERTED. jj7 01:30 Patient admitted, IV remains in place. ha1 08:36 Primary Nurse role handed off by Alea Guerrero, HINA jl7 16:32 Muna Bettencourt, RN is Primary Nurse. me1 Administered Medications: 12/31 22:39 Drug: Furosemide IVP 20 mg IVP once; give over 2 minutes Route: IVP; Site: left forearm;j7 01/01 01:10 Drug: Ativan IVP 0.5 mg IVP once Route: IVP; Site: left forearm; ha1 Medication: 01:00 VIS not applicable for this client. ha1 Outcome: 00:05 Decision to Hospitalize by Provider. sb4 01:00 Condition: stable ha1 01:00 Admitted to ER Hold. [facility]. ha1 01:00 Instructed on the need for admit, Demonstrated understanding of follow-up care, 16:17 Admitted to Tele accompanied by tech, via stretcher, room 410, with chart, Report me1 called to faxed at 16:13. Confirmed receipt of fax with Nicole 17:24 Patient left the ED. co1 Signatures: Dispatcher [employer] Maryam Dacosta rg4 Feranndez Bryant RN RN jl7 Ana Turpin RN HINA kd3 Mahi Ca RN RN ha1 Patricia Palomino RN RN jjDahlia De Guzman, PA-C PA-C 4 Alea Guerrero, RN RN nj1 Muna Bettencourt, RN RN me1 Corrections: (The following items were deleted from the chart) 05:32 12/31 22:15 Reassessment: ASSUMED CARE OF PT. PT SLEEPING IN BED. VS STABLE. NO [facility] DISTRESS NOTED. FAMILY AT BEDSIDE. CALL [place] IN REACH [facility] 01/01 07:15 01:15 General: Appears comfortable, Behavior is calm, ha1 ha1 07:15 01:15 Respiratory: Airway is patent Respiratory effort is even, unlabored, Respiratory ha1 pattern is regular, symmetrical, ha1 07:15 01:15 Reassessment: EYES CLOSED ha1 ha1
[2024-01-02] MEDS ORDERED: ONDANSETRON 4 MG/2 ML VIAL IV PRN (00:41)
--- NOTE | 2024-01-02 00:46 | P.HP ---
Certification for Inpatient Patient admitted to: Inpatient With expected LOS: >2 Midnights Practitioner: I am a practitioner with admitting privileges, knowledge of patient current condition, hospital course, and medical plan of care. Services: Services provided to patient in accordance with Admission requirements found in Title 42 Section 412.3 of the Code of Federal Regulations Patient History Date of Service: 01/02/24 Reason for admission: Lower extremity swelling History of Present Illness: 73 yrs old Male with past medical history of dementia , was in assisted living brought to ER with urinary issues and bilateral lower extremity swelling which has been progressively getting worse and was getting more and more confused lately. Family states that he has burning with urination. Swelling on bilateral lower extremity swelling especially with the right leg. Denies any trauma. No fever or chills. No history of DVT. Denies any history of CHF. Patient is a poor historian and cannot offer any history hence most of the history is obtained from the chart review and also talking to the ER physician. Patient has been confused more than baseline. The patient was assessed in the ER and was admitted for further management. Home medications list reviewed: Yes - Past Medical/Surgical History Past Medical History: Reviewed- Non-Contributory -: Dementia Past Surgical History: Reviewed- Non-Contributory - Family History Family History: Reviewed- Non-Contributory - Social History Smoking Status: Never smoker Review of Systems is unable to be obtained Physical Examination - Vital Signs Temperature: 98.8 F Blood Pressure: 138/78 Pulse: 78 Respirations: 18 Pulse Ox (%): 96 - Physical Exam General: Alert, Oriented x1, Confused HEENT: Atraumatic, Normocephalic Neck: Supple Respiratory: Clear to auscultation bilaterally, Normal air movement Cardiovascular: Regular rate/rhythm, Normal S1 S2, No gallops, Edema Capillary refill: <2 Seconds Gastrointestinal: Soft and benign, W/out hepatosplenomegaly, No ascites, No tenderness Musculoskeletal: No clubbing, Swelling, Erythema Integumentary: No rashes, No breakdown Neurological: Other (Confused , moves all limbs ), Dementia Lymphatics: No axilla or inguinal lymphadenopathy - Studies Laboratory Data (last 24 hrs) 01/01/24 01/01/24 20:52 20:52 WBC 5.50 Hgb 13.1 L Hct 37.7 L Plt Count 143 L Sodium 141 Potassium 3.5 BUN 27 H Creatinine 1.39 H Glucose 109 H Assessment and Plan - Problems (Diagnosis) (1) Bilateral lower extremity edema Current Visit: Yes Status: Acute Plan: Bilateral lower extremity swelling noted Right worse than the left Doppler negative for DVT Mild erythema and trace in temperature Will start on IV antibiotic Monitor closely (2) UTI (urinary tract infection) Current Visit: Yes Status: Acute Plan: Patient complains of dysuria We will get a UA and urine culture Started on antibiotic empirically Will stop antibiotic if cultures are negative (3) Acute encephalopathy Current Visit: Yes Status: Acute Plan: Acute encephalopathy possibly metabolic Has baseline dementia Monitor liver vital signs Will get a CT of the brain to rule out any other cause (4) Dementia Current Visit: Yes Status: Chronic Plan: Dementia baseline Patient is in assisted living Supportive management Discharge Plan: Other Plan to discharge in: 48 Hours - Advance Directives Does patient have a Living Will: No Does patient have a Durable POA for Healthcare: No - Code Status/Comfort Care Code Status: Full Code Time Spent Managing Pts Care (In Minutes): 54
[2024-01-02] MEDS ORDERED: LORazepam 2 MG/ML VIAL ONE (01:07)
[2024-01-02 04:56] VITALS: BMI 29.8
[2024-01-02] MEDS: CEFTRIAXONE 1,000 MG in NA CHLORIDE 0.9% 50 ML IVPB SCH (09:00)
[2024-01-02] MEDS: FUROSEMIDE 20 MG/ 2ML VIAL IV SCH (09:00)
[2024-01-02] MEDS: ENOXAPARIN 40 MG/0.4 ML SQ SCH (09:00)
[2024-01-02] MEDS ORDERED: ENOXAPARIN 40 MG/0.4 ML SQ ONE (09:26)
[2024-01-02] MEDS ORDERED: FUROSEMIDE 20 MG/ 2ML VIAL ONE (09:26)
[2024-01-02] MEDS ORDERED: CEFTRIAXONE 1000 MG/VIAL ONE (09:26)
--- NOTE | 2024-01-02 10:42 | RAD REPORT ---
EXAM DESCRIPTION: CT - Head Brain Wo Cont - 01/02/2024 7:22 am CLINICAL HISTORY: AMS . COMPARISON: 12/17/2023 TECHNIQUE: Contiguous axial sections are obtained as per protocol. Sagittal and coronal reformations are submitted Automatic exposure control (AEC), mA and/or kV adjustment by patient size, and/or iterative reconstru ctive technique was used, per departmental dose optimization program, during the performance of the C T examination. Motion related artifacts are noted. FINDINGS: Ventricles, sulci and cisterns appear normal. Normal hi-white matter differentiation i s noted. No evidence of intra or extra-axial hemorrhage, hematoma, mass, mass effect or midline shift is noted. The posterior fossa structures appear normal. The bony calvarium appears intact. The soft tissues of the scalp appear unremarkable. Normal appearance of the orbits are noted. The paranasal sinuses and mastoids appear normal. IMPRESSION: Unremarkable non contrast enhanced CT examination of brain. No interval change. Electronically signed by: Teresa Jacobsen MD 01/02/2024 07:14 AM CDT Due to temporary technical issues with the PACS/Fluency reporting system, reports are being signed by the in house radiologist without review as a courtesy to ensure prompt reporting. The interpreting r adiologist is fully responsible for the content of the report.
--- NOTE | 2024-01-02 13:22 | P.PN ---
Subjective Date of Service: 01/02/24 Primary Care Provider: RAEGAN Chief Complaint: Lower extremity swelling Subjective: Demented (was walking all over assisted living until when there was a sudden decline) <Emmy Jeffries - Last Filed: 01/02/24 13:23> Date of Service: 01/02/24 <Gi Alex - Last Filed: 01/05/24 03:47> Review of Systems 10-point ROS is otherwise unremarkable General: Chills, Weakness Musculoskeletal: Other (right lower leg with erythematous, dry patch, hx of cellulitis) Neurological: Confusion, Other (hx of dementia) <Emmy Jeffrieslen - Last Filed: 01/02/24 13:23> Physical Examination - Vital Signs Temperature: 98.2 F Blood Pressure: 149/72 Pulse: 61 Respirations: 18 Pulse Ox (%): 99 - Physical Exam General: Alert, Demented, Obese HEENT: Atraumatic, Normocephalic Neck: Supple Respiratory: Normal air movement Cardiovascular: Regular rate/rhythm Capillary refill: <2 Seconds Gastrointestinal: Soft and benign Musculoskeletal: Other (generalized weakness) Integumentary: Other (erythematous, dry patch to anterior right lower leg, + pulses, DVT study negative) - Studies Laboratory Data (last 24 hrs) 01/01/24 01/01/24 20:52 20:52 WBC 5.50 Hgb 13.1 L Hct 37.7 L Plt Count 143 L Sodium 141 Potassium 3.5 BUN 27 H Creatinine 1.39 H Glucose 109 H <Emmy Jeffries - Last Filed: 01/02/24 13:23> Assessment And Plan - Plan - Problems (Diagnosis) (1) Bilateral lower extremity edema Current Visit: Yes Status: Acute Plan: Bilateral lower extremity swelling not really appreciated Right worse than the left Doppler negative for DVT Mild erythema and trace in temperature Will start on IV antibiotic Monitor closely (2) UTI (urinary tract infection) Current Visit: Yes Status: Acute Plan: Patient complains of dysuria We will get a UA and urine culture Started on antibiotic empirically Will stop antibiotic if cultures are negative (3) Acute encephalopathy Current Visit: Yes Status: Acute Plan: Acute encephalopathy possibly metabolic Has baseline dementia Monitor liver vital signs Will get a CT of the brain - negative for acute findings Lovenox for DVT prophylaxis Discharge Plan: [facility] Plan to discharge in: 24 Hours <Emmy Jeffries - Last Filed: 01/02/24 13:23> Date of Service: 01/02/24 Patient seen and examined. Agree with findings as mentioned above. Patient has been confused and is no longer safe to stay at [facility]. Patient is really hard to redirect. Patient would benefit from going to a memory unit. <Gi Alex - Last Filed: 01/05/24 03:47>
[2024-01-02] MEDS: METHYLPREDNISOLONE 40 MG INJ IV SCH (18:01)
[2024-01-02] MEDS: ZIPRASIDONE MESYLA 20 MG/VIAL IM ONE (19:47)
[2024-01-02] MEDS ORDERED: ZIPRASIDONE MESYLA 20 MG/VIAL IM ONE (19:50)
[2024-01-02] MEDS ORDERED: WATER FOR INJ,STERILE 10 ML ONE (19:51)
[2024-01-02] MEDS: LORazepam 2 MG/ML VIAL IV ONE (21:35)
[2024-01-03 07:56] LABS: Absolute Lymphocytes (CBC) 0.3 K/uL (0.7-4.9); Absolute Monocytes 0.1 K/uL (0.1-1.3); Absolute Neutrophil 8.6 K/uL (1.8-8.0); Basophils % 0.1 % (0-1.3); Hematocrit 44.9 % (39.6-49.0); Hemoglobin 15.3 g/dL (13.6-17.9); Lymphocytes % 3.5 % (15.3-44.8); MCHC 34.1 g/dL (32.0-36.0); MCV 99.9 fL (80-100); Monocytes % 0.9 % (3.3-12.3); Neutrophils % 95.5 % (41.7-73.7); Platelets 153 thou/uL (152-406); RBC Red Blood Cell Count 4.49 M/uL (4.33-5.43); Red Cell Distribution Width 13.3 % (12.1-15.2)
[2024-01-03 08:32] LABS: Blood Morphology Comment NOT SEEN (NOT SEEN); Platelet Estimate ADEQ; White Blood Cell Scan OK (OK)
--- NOTE | 2024-01-03 09:20 | ECHO ---
HEIGHT: 5 ft 8 in WEIGHT: 165 lb 0 oz DATE OF STUDY: 01/02/[address]: Timmy Oden DO 2-DIMENSIONAL: YES M.MODE: YES DOPPLER: YES COLOR FLOW: YES TDS: YES PORTABLE: YES DEFINITY: NO BUBBLE STUDY: NO DIAGNOSIS: SWELLING CARDIAC HISTORY: CATHERIZATION: NO SURGERY: NO PROSTHETIC VALVE: NO PACEMAKER: NO MEASUREMENTS (cm) DIASTOLIC (NORMALS) SYSTOLIC (NORMALS) IVSd (0.6-1.2) LA Diam (1.9-4.0) LVEF 55-60 % LVIDd (3.5-5.7) LVIDs (2.0-3.5) %FS % LVPWd (0.6-1.2) Ao Diam (2.0-3.7) 2 DIMENSIONAL ASSESSMENT: RIGHT ATRIUM: NORMAL LEFT ATRIUM: NORMAL RIGHT VENTRICLE: NORMAL LEFT VENTRICLE: NORMAL TRICUSPID VALVE: NORMAL MITRAL VALVE: NORMAL PULMONIC VALVE: NORMAL AORTIC VALVE: NORMAL PERICARDIAL EFFUSION: NONE AORTIC ROOT: NORMAL LEFT VENTRICULAR WALL MOTION: APPEARS NORMAL. DOPPLER/COLOR FLOW: SEE BELOW. COMMENTS: 1. POOR WINDOWS. 2. OVERALL LEFT VENTRICULAR EJECTION FRACTION APPEARS NORMAL 55-60%. TECHNOLOGIST: REGINA ALEMAN
[2024-01-03 09:52] LABS: Anion Gap 7.7 mEq/L (5.0-15.0); Magnesium 1.8 mg/dL (1.6-2.4); Potassium 3.7 mEq/L (3.5-5.1); Thyroid Stimulating Hormone 2.8 uIU/mL (0.358-3.740)
[2024-01-03] MEDS ORDERED: WATER FOR INJ,STERILE 10 ML IM PRN (11:46)
[2024-01-03] MEDS: ZIPRASIDONE MESYLA 20 MG/VIAL IM ONE (11:49)
[2024-01-03] MEDS: WATER FOR INJ,STERILE 10 ML IM PRN (11:49)
--- NOTE | 2024-01-03 11:56 | P.PN ---
Subjective Date of Service: 01/03/24 Primary Care Provider: RAEGAN Chief Complaint: Lower extremity swelling Subjective: Demented (Code hi called last pm for agitation. Geodon given with good results This morning Mr. Benitez is still very confused, lying sideways in bed, gown off. Repositioned, gown placed, pt in bed with SR up x 4, went back to sleep. 1150, pt agitated, geodon 10mg IM x 1 given) <Zara Jeffriesy Wilfred - Last Filed: 01/03/24 11:50> Date of Service: 01/03/24 <Gi Alex - Last Filed: 01/05/24 03:48> Review of Systems 10-point ROS is otherwise unremarkable General: Weakness Integumentary: As per HPI Neurological: Confusion <Zara Jeffriesy Wilfred - Last Filed: 01/03/24 11:50> Physical Examination - Vital Signs Temperature: 98.4 F Blood Pressure: 121/80 Pulse: 89 Respirations: 16 Pulse Ox (%): 100 - Physical Exam General: Oriented x1, Demented, Obese HEENT: Atraumatic, Normocephalic Neck: Supple, JVD not distended Respiratory: Normal air movement Cardiovascular: No edema, Normal pulses Capillary refill: <2 Seconds Gastrointestinal: Soft and benign Musculoskeletal: No clubbing, No swelling Integumentary: Other (bilateral lower extremities with minimal erythema with dry scaly skin to anterior shins) Neurological: Other (confused), Dementia Lymphatics: No axilla or inguinal lymphadenopathy External genitalia: Deferred Rectal: Deferred <Zara Jeffriesy Wilfred - Last Filed: 01/03/24 11:50> Assessment And Plan - Plan - Problems (Diagnosis) (1) Bilateral lower extremity edema Current Visit: Yes Status: Acute Plan: Bilateral lower extremity swelling not really appreciated Right worse than the left Doppler negative for DVT Minimal erythema right garcia scaly area Will start on IV antibiotic Monitor closely (2) UTI (urinary tract infection) Current Visit: Yes Status: Acute Plan: Patient complains of dysuria We will get a UA and urine culture Started on antibiotic empirically Will stop antibiotic if cultures are negative (3) Acute encephalopathy Current Visit: Yes Status: Acute Plan: Acute encephalopathy possibly metabolic Has baseline dementia Monitor liver vital signs Will get a CT of the brain - negative for acute findings Geodon 10mg IM given x 2, will await cultures to r/o infectious causes Lovenox for DVT prophylaxis <Emmy Jeffries - Last Filed: 01/03/24 11:50> Date of Service: 01/03/24 Patient seen and examined. Agree with findings as mentioned above. Code hi was called and patient given Geodon. Patient has been confused and is no longer safe to stay at [facility]. Patient is really hard to redirect. Patient would benefit from going to a memory unit. <Gi Alex - Last Filed: 01/05/24 03:48>
--- NOTE | 2024-01-03 16:42 | RAD REPORT ---
EXAM DESCRIPTION: CT - Spine Lumbar Wo Con - 01/03/2024 12:47 pm CLINICAL HISTORY: dementia, pain with turning/moving, low back, hips COMPARISON: Pelvis Wo Cont dated 01/03/2024 TECHNIQUE: Axial noncontrast CT imaging of the lumbar spine was performed with coronal and sagittal re-formatted images. All CT scans are performed using dose optimization technique as appropriate and may include automated exposure control or mA/KV adjustment according to patient size. FINDINGS: Motion artifact limits evaluation despite attempts at repeat imaging. No acute lumbar spine fracture seen allowing for these limitations. No suspicious marrow abnormalitie s. Multilevel facet and endplate degenerative changes, most pronounced at L2-3 and L4-5, contributing to suspected moderate central canal stenosis at both levels, and moderate to advanced bilateral neural foraminal narrowing at L4-5 and on the left at L2-3. Mild bilateral neural foraminal narrowing at L3- 4 as well. There is gentle dextroconvex curvature at the thoracolumbar junction. Paraspinal tissues are normal in thickness. No paraspinal abscess or hematoma seen. Intervertebral disc disease assessment is inherently limited by CT. Within these limitations, no high -grade canal stenosis suspected. IMPRESSION: No acute lumbar spine fracture or subluxation, within limitations of motion artifact. Multilevel degenerative changes as above. Please consider MRI follow-up for assessment of disc diseas e and neural impingement, if clinically desired.
--- NOTE | 2024-01-03 17:01 | RAD REPORT ---
EXAM DESCRIPTION: CT - Pelvis Wo Cont - 01/03/2024 12:47 pm CLINICAL HISTORY: pain COMPARISON: No comparisons TECHNIQUE: Thin cut axial CT imaging of the pelvis was performed without IV contrast. Multiplanar re formats were generated and reviewed. All CT scans are performed using dose optimization technique as appropriate and may include automated exposure control or mA/KV adjustment according to patient size. FINDINGS: Motion artifact somewhat limits evaluation. No acute fracture or suspicious focal osseous lesion. Moderate right and severe left hip joint degenerative changes, and bilateral sacroiliac joint degener ative changes are noted with some ankylosis across the right sacroiliac joint. Small right inguinal fat containing hernia. Moderate prostatomegaly. Mild distal colonic diverticulos is. No free air, free fluid or inflammatory stranding. No suspicious mass or bulky lymphadenopathy. The u rinary bladder is decompressed limiting evaluation. IMPRESSION: No acute fracture or suspicious osseous abnormality. Degenerative changes as above. Small right inguinal fat containing hernia.
[2024-01-03] MEDS: LORazepam 2 MG/ML VIAL ONE (22:02)
[2024-01-03] MEDS: LORazepam 2 MG/ML VIAL IV ONE (22:04)
[2024-01-03] MEDS: HALOPERIDOL LACT 5 MG/ML INJ IM PRN (22:30)
--- NOTE | 2024-01-04 07:14 | P.PN ---
Date of Service: 01/04/24 Physical Examination - Vital Sign: reviewed - Physical Exam General: Oriented x1, Demented, Obese HEENT: Atraumatic, Normocephalic Neck: Supple, JVD not distended Respiratory: Normal air movement Cardiovascular: No edema, Normal pulses Capillary refill: <2 Seconds Gastrointestinal: Soft and benign Musculoskeletal: No clubbing, No swelling Integumentary: Other (bilateral lower extremities with minimal erythema with dry scaly skin to anterior shins) Neurological: Other (confused), Dementia, restless, swinging Lymphatics: No axilla or inguinal lymphadenopathy External genitalia: Deferred Rectal: Deferred Assessment And Plan - Plan - Problems (Diagnosis) (1) Bilateral lower extremity edema Current Visit: Yes Status: Acute Plan: Bilateral lower extremity swelling not appreciated Doppler negative for DVT Will start on IV antibiotic - pt pulled out IV Monitor closely (2) UTI (urinary tract infection) Current Visit: Yes Status: Acute Plan: Will stop antibiotic as cultures are negative (3) Acute encephalopathy Current Visit: Yes Status: Acute Plan: Acute encephalopathy possibly metabolic Has baseline dementia - with severe sundown effects Placement to locked dementia unit if possible and POAH agreeable Lovenox for DVT prophylaxis <Emmy Jeffries - Last Filed: 01/04/24 07:14> Subjective Subjective: Patient clinically with no significant changes. Patient's neurologic status has not really improved. Physical Examination - Vital Signs reviewed - Physical Exam General: Oriented x1, Demented, Obese Respiratory: Normal air movement Cardiovascular: No edema, Normal pulses Gastrointestinal: Soft and benign Musculoskeletal: No clubbing, No swelling Integumentary: Other (bilateral lower extremities with minimal erythema with dry scaly skin to anterior shins) Neurological: Other (confused), Dementia Assessment And Plan - Problems (Diagnosis) (1) Bilateral lower extremity edema Current Visit: Yes Status: Acute Plan: Continue with IV antibiotics and gentle diuresing. Monitor volume status closely. (2) UTI (urinary tract infection) Current Visit: Yes Status: Acute Plan: Patient on antibiotics empirically. Continue to monitor. (3) Acute encephalopathy Current Visit: Yes Status: Acute Plan: Patient's neurologic status has not really improved. Continue with medications for dementia. Continue with Lyrica and Seroquel. <Gi Alex - Last Filed: 01/05/24 03:51>
[2024-01-04] MEDS: QUETIAPINE 25 MG TAB PO SCH (17:06)
[2024-01-04] MEDS: DONEPEZIL HCL 5 MG TAB PO SCH (22:03)
[2024-01-04] MEDS: MEMANTINE HCL 10 MG TABLET PO SCH (22:06)
[2024-01-04] MEDS: DOXYCYCLINE 100 MG CAP PO SCH (22:07)
[2024-01-05] MEDS: LORAZEPAM 0.5 MG TABLET PO ONE (01:35)
[2024-01-05] MEDS: ACETAMINOPHEN 325 MG TABLET PO PRN (01:35)
[2024-01-05] MEDS: PREGABALIN 75 MG CAP PO SCH ×2 (09:00→10:14)
[2024-01-05] MEDS: QUETIAPINE 25 MG TAB PO SCH (10:09)
[2024-01-05] MEDS: FUROSEMIDE 20 MG TABLET PO SCH (10:09)
[2024-01-05] MEDS: MEMANTINE HCL 10 MG TABLET PO SCH (10:14)
[2024-01-05] MEDS: FOLIC ACID 1 MG TABLET PO SCH (10:15)
[2024-01-05] MEDS: ASPIRIN EC 81 MG TAB PO SCH (10:15)
[2024-01-05] MEDS: allopurinoL 100 MG TAB PO SCH (10:17)
[2024-01-05] MEDS: CYANOCOBALAMIN 1,000 MCG TAB PO SCH (10:17)
[2024-01-05 12:47] LABS: Absolute Eosinophils 0.1 K/uL (0-0.5); Basophils % 0.2 % (0-1.3); Eosinophils % 1.3 % (0-4.4); Lymphocytes % 12.4 % (15.3-44.8); MCHC 34.2 g/dL (32.0-36.0); MCV 99.5 fL (80-100); MPV 10.1 fL (7.6-11.3); Monocytes % 12.6 % (3.3-12.3); Neutrophils % 73.5 % (41.7-73.7); Platelets 155 thou/uL (152-406); RBC Red Blood Cell Count 4.42 M/uL (4.33-5.43); Red Cell Distribution Width 13.4 % (12.1-15.2)
[2024-01-05 13:03] LABS: Albumin 3.8 g/dL (3.4-5.0); Albumin/Globulin Ratio 0.9 (1.1-1.8); Anion Gap 9.6 mEq/L (5.0-15.0); Bilirubin Total 1.1 mg/dL (0.2-1.0); Globulin 4.2 g/dL (2.3-3.5); Magnesium 1.9 mg/dL (1.6-2.4); Potassium 3.6 mEq/L (3.5-5.1)
[2024-01-05] MEDS: POTASSIUM CL SA 10 MEQ TAB PO ONE (14:04)
--- NOTE | 2024-01-05 14:22 | P.PN ---
Subjective Date of Service: 01/05/24 Primary Care Provider: RAEGAN Chief Complaint: symptoms of infection resolved, pt with ing, restarted psych meds Subjective: Improving, Demented Review of Systems 10-point ROS is otherwise unremarkable General: Other (strong, dementia) Eyes: Unremarkable ENT: Unremarkable Respiratory: Unremarkable Cardiovascular: Unremarkable Gastrointestinal: Unremarkable Genitourinary: Unremarkable Musculoskeletal: Unremarkable Integumentary: Unremarkable Neurological: Confusion Physical Examination - Vital Signs Temperature: 97.3 F Blood Pressure: 140/76 Pulse: 67 Respirations: 18 Pulse Ox (%): 93 - Physical Exam General: Alert, Oriented x1 HEENT: Atraumatic, Normocephalic Neck: Supple Respiratory: Normal air movement Cardiovascular: Regular rate/rhythm Capillary refill: <2 Seconds Gastrointestinal: Soft and benign Musculoskeletal: No clubbing, No swelling Integumentary: No rashes Neurological: Normal tone, Dementia Lymphatics: No axilla or inguinal lymphadenopathy External genitalia: Deferred Rectal: Deferred Assessment And Plan - Plan - Problems (Diagnosis) (1) Bilateral lower extremity edema Current Visit: Yes Status: Acute Plan: Bilateral lower extremity swelling not really appreciated Right worse than the left Doppler negative for DVT skin dry and intact (2) UTI (urinary tract infection) Current Visit: Yes Status: Acute Plan: Patient complains of dysuria We will get a UA and urine culture Started on antibiotic empirically Will stop antibiotic if cultures are negative, negative cultures. Rocephin stopped. out of abundance of caution for infection be it urine or skin in nature, doxycyline po started yesterday (3) Acute encephalopathy Current Visit: Yes Status: Acute Plan: Acute encephalopathy possibly metabolic Has baseline dementia Monitor liver vital signs Will get a CT of the brain - negative for acute findings Geodon 10mg IM given x 2, will await cultures to r/o infectious causes Restarted Seroquel and Lyrica yesterday, besides symptoms, family and staff state pt with improved behavior, mentation. He has been approved for inpatient rehab. Transfer to inpatient rehab tomorrow [facility] for DVT prophylaxis Discharge Plan: Transfer Plan to discharge in: 24 Hours Critical Care: No
[2024-01-05] MEDS ORDERED: FUROSEMIDE 20 MG TABLET PO SCH (17:00)
--- NOTE | 2024-01-05 17:37 | EKG ---
Test Date: 2024-01-02 Test Time: 00:34:12 Research Program Internship: [facility] MEASUREMENT RESULTS: Intervals: Rate: 47 ND: 226 QRSD: 150 QT: 472 QTc: 417 [place]: P: 18 ND: 226 QRS: -11 T: 20 INTERPRETIVE STATEMENTS: Marked sinus bradycardia with 1st degree AV block Right bundle branch block Abnormal ECG Compared to ECG 11/15/2012 13:57:12 First degree AV block now present Right bundle-branch block now present ST (T wave) deviation no longer present Electronically Signed On 01-05-24 17:26:17 CDT by Anatoliy Aviles
[2024-01-05] MEDS: BISACODYL E.C. 5 MG TAB PO SCH (20:54)
[2024-01-05] MEDS: ATORVASTATIN 10 MG TAB PO SCH (20:55)
[2024-01-05] MEDS: DONEPEZIL HCL 5 MG TAB PO SCH (20:55)
[2024-01-05] MEDS ORDERED: HOME MED 1 EA UNK (Pravastatin [Pravachol*] 40 MG/TAB Tab) PO SCH (21:00)
--- NOTE | 2024-01-06 08:17 | P.DS ---
Admission Date: 01/02/24 Discharge Date: 01/06/24 Primary Care Provider: RAEGAN Disposition: TRANSFER TO INPATIENT REHAB Discharge Condition: FAIR Reason for Admission: symptoms of infection resolved, pt with sundowning, restarted psych meds Consultations: patient services representative and physical therapy Brief History of Present Illness: 73 yrs old Male with past medical history of dementia was in assisted living brought to ER with urinary issues and bilateral lower extremity swelling which has been progressively getting worse and was getting more and more confused lately. Family states that he has burning with urination. Swelling on bilateral lower extremity swelling especially with the right leg. Denies any trauma. No fever or chills. No history of DVT. Denies any history of CHF. Patient is a poor historian and cannot offer any history hence most of the history is obtained from the chart review and also talking to the ER physician. Patient has been confused more than baseline. Hospital Course: Mr. Benitez's hospital stay was complicated by confusion, dementia, significant sundown syndrome. During the daylight hours he has become more oriented to person and surroundings. He was restarted on his oral Seroquel and Lyrica with general improvement in his behavioral status. He qualified for inpatient rehab with PT prior to return to [facility] assisted living Vital Signs/Physical Exam: Temp Pulse Resp BP Pulse Ox 97.5 F 73 18 141/69 H 96 01/06/24 04:00 01/06/24 04:00 01/06/24 04:00 01/06/24 04:00 01/06/24 04:00 General: Alert, Oriented x1, Cooperative, Confused HEENT: Atraumatic, Normocephalic Neck: Supple Respiratory: Normal air movement Cardiovascular: Normal pulses, Regular rate/rhythm Capillary refill: <2 Seconds Gastrointestinal: Soft and benign Musculoskeletal: No clubbing, No swelling Neurological: Sensation intact, Dementia Lymphatics: No axilla or inguinal lymphadenopathy External genitalia: Deferred Rectal: Deferred Laboratory Data at Discharge: WBC 8.10 thou/uL (4.3-10.9) 01/05/24 12:15 Hgb 15.0 g/dL (13.6-17.9) 01/05/24 12:15 Hct 44.0 % (39.6-49.0) 01/05/24 12:15 Plt Count 155 thou/uL (152-406) 01/05/24 12:15 Sodium 139 mEq/L (136-145) 01/05/24 12:15 Potassium 3.6 mEq/L (3.5-5.1) 01/05/24 12:15 BUN 37 mg/dL (7-18) H 01/05/24 12:15 Creatinine 1.33 mg/dL (0.70-1.30) H 01/05/24 12:15 Glucose 110 mg/dL (74-106) H 01/05/24 12:15 Magnesium 1.9 mg/dL (1.6-2.4) 01/05/24 12:15 Total Bilirubin 1.1 mg/dL (0.2-1.0) H 01/05/24 12:15 AST 42 U/L (15-37) H 01/05/24 12:15 ALT 27 U/L (16-61) 01/05/24 12:15 Alkaline Phosphatase 90 U/L (45-117) 01/05/24 12:15 Home Medications: Allopurinol 1 tab PO DAILY 01/03/24 Aspirin [Aspirin EC] 81 mg PO DAILY 01/03/24 Bisacodyl [Dulcolax] 5 mg PO BEDTIME 01/03/24 Cholecalciferol (Vitamin D3) [Vitamin D3] 2 tab PO DAILY 01/03/24 Cyanocobalamin [Vitamin B-12*] 1 tab PO DAILY 01/03/24 Docosahexanoic AC/Epa [Fish Oil 1,000 MG*] 1 tab PO DAILY 01/03/24 Donepezil HCl 10 mg PO BEDTIME 01/03/24 Folic Acid 1 mg PO DAILY 01/03/24 Memantine HCl [Namenda] 10 mg PO BID 01/03/24 Metformin HCl [Glucophage] 500 mg PO DAILY WITH BREAKFAST 01/03/24 Pravastatin [Pravachol*] 1 tab PO BEDTIME 01/03/24 Pregabalin [Lyrica] 75 mg PO BID 01/03/24 Quetiapine [Seroquel] 50 mg PO TID 01/03/24 Risperidone [Risperdal] 0.5 mg PO TIDP PRN 01/03/24 Trazodone HCl 100 mg PO BEDTIME PRN PRN 01/03/24 Ubidecarenone [Co Q-10] 300 mg PO DAILY 01/03/24 hydroCHLOROthiazide [Hydrochlorothiazide*] 1 tab PO DAILY 01/03/24 Diet: Regular Activity: per PT [facility] [Primary Care Provider] -
[2024-01-06] MEDS: RISPERIDONE 0.25 MG TABLET PO PRN (08:19)
[2024-01-06] MEDS: METFORMIN HCL 500 MG TAB PO SCH (08:28)
[2024-01-06] MEDS ORDERED: allopurinoL 100 MG TAB PO SCH (09:00)
[2024-01-06 11:37] VITALS: O2SAT 95
[2024-01-06 17:18] VITALS: BP 97/56; TEMP 97.1
== END 2024-01-06 20:35 | DRG 689 ==
LOC: ER 18:00 → ERHOLD 01-02 00:41 → 4TH 01-02 16:27
PROVIDERS: ADMIT Family Medicine; ATTEND Hospitalist
DX: N39.0 Urinary tract infection, site not specified (principal); G93.41 Metabolic encephalopathy; F03.911 Unspecified dementia, unspecified severity, with agitation; F05 Delirium due to known physiological condition; I10 Essential (primary) hypertension; E11.9 Type 2 diabetes mellitus without complications; E78.00 Pure hypercholesterolemia, unspecified; E03.9 Hypothyroidism, unspecified; G47.00 Insomnia, unspecified; M19.90 Unspecified osteoarthritis, unspecified site; M79.89 Other specified soft tissue disorders; Z88.1 Allergy status to other antibiotic agents; Z88.0 Allergy status to penicillin; Z79.84 Long term (current) use of oral hypoglycemic drugs; Z79.899 Other long term (current) drug therapy
CPT/HCPCS: 36415; 70450; 71045; 72131; 72192; 80048; 80053; 81001; 82533; 82607; 83735; 83880; 84439; 84443; 85025; 93005; 93306; 93970; 94760; 96374; 96375; 97116; 97163; 97530; 99285; J0696; J1630; J1650; J1940; J2920; J3486

== ENCOUNTER 2024-01-06 13:29 | Inpatient (IN) | payer OTHER, MEDICARE ==
[2024-01-06] MEDS ORDERED: ACETAMINOPHEN 500 MG TAB PO PRN (21:33)
[2024-01-07] MEDS ORDERED: D50W 25 GM/50 ML SYRINGE IV PRN (02:09)
[2024-01-07] MEDS ORDERED: GLUCAGON 1 MG/VIAL IM PRN (02:09)
[2024-01-07] MEDS ORDERED: D10W 125 ML IV PRN (02:29)
[2024-01-07] MEDS: INSULIN REGULAR (HUMAN) 100 UNIT/ML SQ SCH (07:30)
[2024-01-07] MEDS: PREGABALIN 75 MG CAP PO SCH (08:19)
[2024-01-07] MEDS: MEMANTINE HCL 10 MG TABLET PO SCH (08:19)
[2024-01-07] MEDS: allopurinoL 100 MG TAB PO SCH (08:20)
[2024-01-07] MEDS: ASPIRIN EC 81 MG TAB PO SCH (08:20)
[2024-01-07] MEDS: DOXYCYCLINE 100 MG CAP PO SCH (08:20)
[2024-01-07] MEDS: METFORMIN HCL 500 MG TAB PO SCH (08:20)
[2024-01-07 08:21] LABS: Albumin 3.7 g/dL (3.4-5.0); Anion Gap 9.6 mEq/L (5.0-15.0); Magnesium 1.9 mg/dL (1.6-2.4); Potassium 3.6 mEq/L (3.5-5.1); Prealbumin 23.9 mg/dL (20-40)
[2024-01-07] MEDS: FOLIC ACID 1 MG TABLET PO SCH (08:21)
[2024-01-07] MEDS: CYANOCOBALAMIN 1,000 MCG TAB PO SCH (08:21)
[2024-01-07] MEDS: FUROSEMIDE 20 MG TABLET PO SCH (08:22)
[2024-01-07] MEDS: QUETIAPINE 25 MG TAB PO SCH (08:22)
[2024-01-07 13:53] LABS: Absolute Eosinophils 0.2 K/uL (0-0.5); Absolute Lymphocytes (CBC) 1.1 K/uL (0.7-4.9); Absolute Monocytes 0.8 K/uL (0.1-1.3); Absolute Neutrophil 4.9 K/uL (1.8-8.0); Basophils % 0.4 % (0-1.3); Eosinophils % 3.3 % (0-4.4); Hemoglobin 14.7 g/dL (13.6-17.9); Lymphocytes % 15.9 % (15.3-44.8); MCHC 34.3 g/dL (32.0-36.0); MPV 9.7 fL (7.6-11.3); Monocytes % 10.6 % (3.3-12.3); Neutrophils % 69.8 % (41.7-73.7); Nucleated Red Blood Cells % 0.1 % (0-0); Platelets 166 thou/uL (152-406); RBC Red Blood Cell Count 4.34 M/uL (4.33-5.43); Red Cell Distribution Width 13.3 % (12.1-15.2)
[2024-01-07] MEDS: ENOXAPARIN 40 MG/0.4 ML SQ SCH (16:28)
[2024-01-07] MEDS: RISPERIDONE 0.25 MG TABLET PO PRN (18:47)
[2024-01-07] MEDS: MELATONIN 3 MG TABLET PO PRN (18:48)
[2024-01-07] MEDS: BISACODYL E.C. 5 MG TAB PO SCH (20:16)
[2024-01-07] MEDS: DONEPEZIL HCL 5 MG TAB PO SCH (20:16)
[2024-01-07] MEDS: ATORVASTATIN 10 MG TAB PO SCH (20:16)
--- NOTE | 2024-01-07 22:06 | HP ---
Date of Admission: 01/06/2024 Time Of Service: 2 p.m. Chief Complaint: "I was confused and now I am better." History Of Present Illness: Mr. Benitez is a 73-year-old patient with a history of dementia, who live s in an assisted living facility nearby who was brought in on the 31 of December with increased confus ion, bilateral lower extremity weakness with swelling, and was diagnosed with a urinary tract infecti on. Doppler studies of the lower extremities were negative for deep vein thrombus. His urinalysis w as positive for urinary tract infection. He was started on Rocephin. CT scan of his head was done. Study showed no acute ischemic hemorrhagic findings. Blood work was consistent with dehydration, in creased BUN of 37, decreased creatinine of 1.33. Glucose was 110. The patient's likely issue was an acute on chronic encephalopathy, aggravated by his metabolic derangement and urinary tract infection . He was treated previously with Lyrica and then Seroquel for some encephalopathy with psychotic fea tures. Due to worsening agitation, he was actually given Geodon as Seroquel was not as helpful. He did have episodes of sundowning and was evaluated by physical and occupational therapy and speech the rapy service and found to be functioning well below his normal level where he required moderate to ma x assistance for bed mobility, transferring, and ambulation. He required moderate assistance for saf e decision making and to be able to articulate his issues and communicate them effectively. Due to h is multiple medical problems and need for rehabilitation, he was determined to be an appropriate cand idate for aggressive inpatient rehabilitation and was therefore admitted for physical, occupational, and speech therapy. Past Medical History: As noted above, in addition to diabetes mellitus, dyslipidemia, hypertension, hypothyroidism, osteoarthritis, insomnia, posttraumatic stress disorder, and he is a [place] . In addition, history of cellulitis. Allergies: LEVAQUIN AND PENICILLIN. Social History: No recent alcohol, tobacco, or IV drug use. Medications: Tylenol Extra Strength 650 mg every 4 hours as needed, allopurinol 100 mg daily, aspiri n 81 mg daily, Lipitor 10 mg at bedtime, Dulcolax 5 mg at bedtime, vitamin B12 1000 mcg daily, donepe zil 10 mg at bedtime, Vibramycin 100 mg twice daily, Lovenox 40 mg subcutaneously daily, folic acid 1 mg daily, Lasix 20 mg twice daily, melatonin 3 mg at bedtime, Namenda 10 mg twice daily, Glucophage 500 mg daily, Lyrica 75 mg twice daily, Seroquel 50 mg 3 times daily, and risperidone 0.5 mg 3 times daily as needed for delirium. Family History: Noncontributory. Surgical History: No recent surgeries. Review of Systems: Currently the patient is in the rehab room with his daughter at the bedside. He denies any fevers, c hills, nausea, vomiting. No myalgias, arthralgias. No rash. No headache. No psychiatric issues th at the patient admits to and currently is not exhibiting any. No other positives on systems review. Current Level Of Functioning: Eating is setup assistance, oral hygiene setup, toileting maximum assi stance, bathing also maximal assistance. Upper body dressing moderate assistance. Lower body dressi ng maximum assistance. Donning and doffing footwear maximum assistance. Rolling right to left, left to right moderate assistance. Sit to stand and sliding on to the side of the bed maximum assistance . For transfers to the toilet maximum assistance. Shower maximum assistance. Walking, he did ambul ate 100 feet with rolling walker, but at moderate assistance level. Physical Examination: Vital Signs: Blood pressure 113/65, pulse 72, respiratory rate 16, temperature 97.1, oxygen saturati on 99% room air. General: Mr. Benitez is resting comfortably in a chair, finished his lunch. HEENT: He is normocephalic, atraumatic. Does have a [place] hat on. He has otherwise no is sues in terms of cranial nerves. Chest: Clear. Heart: Regular. Extremities: No significant clubbing, cyanosis, or edema. Neurological: He is alert, follows simple commands, but may need some repeated instructions. At the time I evaluated the patient he was attempting to take a drink of water from the pitcher but opened the pitcher and was unsure how to proceed easily. He was receiving 2 tablets at the time and made an attempt to put them into the water before being redirected to actually put the lid on properly, use a straw, put the tablets in, and he was able to swallow them at that point without any signs of aspir ation. Laboratory Studies: His complete blood count with differential is completely normal. White blood ce ll count 7.1, hemoglobin 14.7, platelets are 166. His chemistries showed dehydration with creatinine 1.38, BUN 37, glucose 113. He has vitamin B12 level 1452. TSH 2.80, free T4 of 0.85. Cortisol lev el normal at 15.27. Prealbumin 23.9. Liver functions show slightly elevated AST of 42, normal ALT o f 27, alkaline phosphatase of 90. Magnesium 1.9, calcium 9.5. Urinalysis from the shows presen ce of sperm, but otherwise normal. X-ray Imaging: A pelvis CT scan on the 02 of January shows no acute fracture or suspicious osseous a bnormalities. A lumbar spine CT scan on 01/03/2024 showed no acute lumbar spine fracture or subluxat ion. There was moderate to advanced bilateral neural foraminal narrowing at L4-5 and on the left at L2-3, mild bilateral neural foraminal narrowing at L3-L4. There is also pronounced at L2-3 and L4-5 moderate central canal stenosis at both levels. Rehabilitation And Medical Assessment And Plan: Mr. Benitez is a 73-year-old patient admitted to reha bilitation unit with metabolic encephalopathy. His rehab impairment category is 03, brain dysfunctio n, nontraumatic and his impairment group code is 02.1 nontraumatic, and his etiologic diagnosis metab olic encephalopathy. Additional diagnoses; diabetes mellitus, diabetic neuropathy, essential hyperte nsion, urinary tract infection, decreased physical functioning, decreased mobility, debility, dehydra tion. Plan: He will have physical and occupational and speech therapy for 3.5 hours, 5 of 7 days. For gou t, he will continue allopurinol 100 mg daily, aspirin 81 mg daily for stroke risk reduction, Lipitor for dyslipidemia, vitamin B12 may be held, his vitamin B12 is elevated, Aricept 10 mg at bedtime for his dementia, Vibramycin continued for the urinary tract infection, will be until the to , today is the , folic acid for stroke risk reduction, Lovenox for DVT risk reduction, melatonin for insomnia and Namenda along with donepezil for his dementia, metformin for diabetes mellitus, Lyr ica for diabetic neuropathy, Seroquel and Risperdal for any psychotic features, especially at nightti me where there may be a tendency to get up and try to wander. Comorbidities That Are Impacting Rehabilitation: Apparently the cognitive impairment has led last ni ght for the patient attempting to get up and wander around the room. His son did spend the night wit h him and the daughter may alternate spending the night with him. In addition he does have melatonin to help him sleep through the night and he has the risperidone and Seroquel as well, as needed. He still has treatment ongoing for urinary tract infection. He is also dehydrated. Those issues are go ing to be addressed as he does his rehabilitation. Rehab Specific Plan: Mr. Benitez will have physical and occupational and speech therapy for 3.5 hours , 5 of 7 days to improve his cognition, his judgment, his safety awareness, processing of information , ability to manage his medications properly and to protect his airway and also to communicate more e ffectively both for expression and comprehension. He will also have physical therapy for him to be a ble to be up and about and ambulate safely using a rolling walker and donning and doffing of shoes, u pper and lower body dressing. In addition occupational therapy again for donning and doffing of clot hes and showering and toileting, all safely. Mr. Benitez and his daughter have a good understanding of the process of admission to the inpatient re habilitation facility and how to benefit from physical and occupational and speech therapy. If need be, additional help from the Infectious Disease Service, Hospitalist Service may be consulted. Given the complex medical condition and risk of further complications, rehabilitation cannot be safely or effectively performed at a lower level facility such as care home. Barriers To Discharge: Currently, the patient is from an assisted living facility. He will likely b e back there and will recommend a 24 hour supervision for safety awareness, managing medications and decision making. His daughter is in agreement. Length Of Stay: About 12 days. Disposition: Back to assisted living, 24 hour care and home health to continue. Prognosis: Good. Rehabilitation Goals: 1.Become independent with upper and lower body dressing, toileting, showering, donning and doffing o f footwear. 2.Independently ambulate 250 feet with rolling walker. 3.Independently propel a wheelchair 250 feet. 4.Independently go up and down 10 steps with bilateral handrails. 5.Independently perform all cognitive functioning including all decision making and safety awareness . The above goals were reviewed with Mr. Benitez and he and his daughter are in agreement. By signing this document, I acknowledge that I personally performed a full physical examination on Mr Fei Benitez no later than 24 hours after his admission to the inpatient rehabilitation facility and dete rmined that he is able to tolerate the above course of treatment at an intensive level for a reasonab le period of time. A detailed individualized plan of care for him will be completed by hospital day 4 based on the preadmission screen, history and physical, and therapy evaluations. ALEX Voice ID: [id number]
[2024-01-08] MEDS: INSULIN REGULAR (HUMAN) 100 UNIT/ML SQ SCH (08:00)
--- NOTE | 2024-01-08 22:23 | PN ---
Date of Progress Note: 01/08/2024 Time Of Service: 1 p.m. Subjective: Mr. Benitez is sitting in a chair beside the bed. He appears somewhat sleepy. He did schwartz ve a full morning of therapy. He did not report any pain and has no new complaints. Objective: No fevers, chills, nausea, vomiting. No myalgias, arthralgias, rash, psychiatric issues, although the night before, he was somewhat agitated. He did have family in the room, but has done m uch better during the day, does have some sundowning at night. Physical Examination: Vital Signs: Blood pressure 117/61, pulse of 77, respiratory rate of 16, temperature 96.9, oxygen sa turation 100%. General: Mr. Benitez is resting in the chair. Head is down, but he will open his eyes and mumble 1 o r 2 words to questions, but mostly he has been quite silent. He has no focal deficits such as face, arm, or leg weakness, numbness, good air movement. Abdomen: Soft. Laboratory Studies: Complete blood count with differential is completely normal. White blood cell c ount 7.1, hemoglobin 14.7, hematocrit 43, platelets 166. Sodium 141, potassium 3.6, chloride 107, ca rbon dioxide 28, BUN 37, creatinine slightly increased to 1.38, blood glucose ranged from 92 to 140, calcium 9.5, magnesium 1.9, albumin 3.7, prealbumin 23.9. X-ray/imaging: No new x-rays or imaging. Medications: Tylenol 650 mg every 4 hours as needed, allopurinol 100 mg daily, aspirin 81 mg daily, Lipitor 10 mg at bedtime, Dulcolax 5 mg at bedtime, vitamin B12 1000 mcg daily, Aricept 10 mg at bedt ritchie, Vibramycin 100 mg twice daily, Lovenox 40 mg subcutaneously daily, folic acid 1 mg daily, Lasix 20 mg daily, melatonin 3 mg at bedtime, Namenda 10 mg twice daily, metformin 500 mg twice daily, Lyri ca 75 mg twice daily, Seroquel 50 mg 3 times daily as scheduled, and risperidone 0.25 mg 3 times sabrina y as needed for delirium. Progress Made With Physical And Occupational Along With Speech Therapy: Today with physical therapy, he propelled a wheelchair bilaterally with the legs with moderate resistance covering 200 feet. He ambulated 250 feet twice with contact guard to minimum assistance using a rolling walker. He was up and down 5 steps with minimum assistance and using bilateral handrails. With occupational therapy, a ssistance for activities of daily living were required including donning and doffing of shoes and juliette rt, required maximal assistance for lower body dressing, supervision to initiate washing his hands, f sae, minimum assistance for [id number] transfers with verbal cues required. With speech therapy, nikhil olvera scored 0 on the BIMS and 1 on the SLUMS. He had temporal orientation issues, organizational thinki ng problems, short-term recall, and working memory difficulties. Mr. Benitez is making good progress with physical and occupational therapy and very poor progress with speech therapy thus far. Assessment: Mr. Benitez is a 73-year-old patient in the rehabilitation unit with metabolic encephalop athy. He has elevated creatinine and BUN consistent with dehydration. He has diabetes mellitus, durga betic peripheral neuropathy, essential hypertension, untreated urinary tract infection, decreased phy sical functioning, decreased mobility. Plan: 1.He will continue with physical, occupational, and speech therapy for 3.5 hours, 5 of 7 days. 2.He will continue with gout treatment using allopurinol, aspirin for stroke risk reduction, Lovenox for DVT risk reduction, vitamin B12 for his energy, Aricept and Namenda for his memory loss. Contin ue with Vibramycin for urinary tract infection and Lyrica for diabetic peripheral neuropathy. Contin ue Seroquel and Risperdal for psychosis, especially sundowning at night. Comorbidities That Are Impacting His Rehabilitation: His baseline cognitive deficits consistent with Alzheimer's disease and he has metabolic encephalopathy on top and making it difficult for him to do well. He has very low scores on the BIMS and SLUMS tests, again consistent with significant cogniti ve impairment. He will likely require 24 hours of care and supervision once he is discharged even if he does very well with physica l and occupational therapy. LB/MODL Voice ID: [id number] Report ID: [id number]
[2024-01-09 04:16] LABS: Absolute Eosinophils 0.2 K/uL (0-0.5); Absolute Lymphocytes (CBC) 0.7 K/uL (0.7-4.9); Absolute Monocytes 0.6 K/uL (0.1-1.3); Absolute Neutrophil 4.2 K/uL (1.8-8.0); Basophils % 0.3 % (0-1.3); Eosinophils % 3.7 % (0-4.4); Hematocrit 41.4 % (39.6-49.0); Hemoglobin 14.3 g/dL (13.6-17.9); MCH 34.3 pg (27.0-35.0); MCHC 34.6 g/dL (32.0-36.0); MCV 99.2 fL (80-100); MPV 9.8 fL (7.6-11.3); Monocytes % 9.9 % (3.3-12.3); Neutrophils % 73.1 % (41.7-73.7); Nucleated Red Blood Cells % 0.1 % (0-0); Platelets 159 thou/uL (152-406); RBC Red Blood Cell Count 4.17 M/uL (4.33-5.43); Red Cell Distribution Width 13.2 % (12.1-15.2)
[2024-01-09 14:49] VITALS: BMI 33.1
[2024-01-10] MEDS ORDERED: ACETAMINOPHEN 325 MG TABLET ONE (03:38)
[2024-01-10] MEDS: ACETAMINOPHEN 325 MG TABLET PO PRN (03:39)
[2024-01-10] MEDS: MELATONIN 3 MG TABLET PO PRN (20:00)
--- NOTE | 2024-01-10 20:37 | PN ---
Date of Progress Note: 01/10/2024 Time Of Service: 1:10 p.m. Subjective: Mr. Benitez is in his chair. His head is somewhat down. He has completed a lot of thera py today and does feel somewhat sleepy. The family noted and nursing staff that he did not sleep wel l last night and will have adjustments of medications to help with his sleep including melatonin and trazodone as needed. He does have Seroquel on board for some issues of psychotic type behavior. Review of Systems: No fevers or chills. No significant myalgias, arthralgias, rash. No headache. No other positives o n the systems review other than mentioned. Physical Examination: Vital Signs: Blood pressure 131/73, pulse of 71, respiratory rate 16, temperature 97.3, oxygen satur ation 94%. General: Mr. Benitez is resting comfortably in a chair. He appears in no acute distress. HEENT: Normocephalic, atraumatic. Sclerae anicteric. Oropharynx pink and moist. Neck: Supple. Chest: Clear. Abdomen: Shows no abnormalities. He does respond appropriately to medications. Laboratory Studies: White blood cell count 5.7, hemoglobin 14.3, platelets 159. Sodium 138, potassi um 4.0, chloride 100, carbon dioxide 33, BUN 45, creatinine 1.52, glucose ranged from 88 to 112, calc ium 9.3. X-ray/imaging: No new x-rays or imaging. Medications: Medications have been reviewed and he will have the melatonin added for his difficulty sleeping. Aside from that, all medications are unchanged except the Tylenol added for [id number] te pain. Progress Made With Physical, Occupational, And Speech Therapy: Today, with physical therapy, complet ed multiple [id number]-[id number] transfers and stand pivot transfers and contact guard assistance. He ambula desmond 500 feet with contact guard assistance with minimum assistance. Towards the end, he did fatigue. He propelled a wheelchair 750 feet with contact guard assistance. It is noted, the staff said the patient started making a motor noise and sped up through the hallway as he was doing therapy. With o ccupational therapy, he did engage in dynamic sitting and balance exercises by reaching for a ball an d tossing ball back and forth to improve his sitting balance and had no loss of balance. The patient 's daughter was present during therapy sessions. With speech, he named 1 of 4 pictures with maximum assistance, though he is able to show gestures to indicate that he knew what the items were used for. Has difficulty with expressive language due to his dementia. Mr. Benitez is making great progress with physical and occupational therapy. He does have challenges of dementia as noted above, has moderate impairment. Assessment: Mr. Benitez is a 73-year-old patient in the rehabilitation unit with metabolic encephalop athy on top of a chronic cognitive impairment. He has diabetes mellitus, diabetic peripheral neuropa thy, essential hypertension, urinary tract infection, decreased physical functioning, decreased mobil ity, gout, and psychotic features with his dementia. Plan: 1.Continue physical, occupational, and speech therapy for 3.5 hours, 5/7 days. 2.His multiple comorbid conditions are addressed by continuing medications including Aricept and Nam enda for memory loss, Vibramycin completed for urinary tract infection, Lyrica for diabetic neuropath y, Seroquel for his psychosis and he will have melatonin for insomnia, aspirin for stroke risk reduct ion, Lovenox for DVT prophylaxis, B12 for energy. Comorbidities That Are Continuing To Impact His Rehabilitation: His big issue is his cognitive defic its on top of the metabolic encephalopathy making it difficult for him to recall how to be safe and a [place] of potential pitfalls and risk of falling. He will require 24 hours supervision. On discharge, patient's daughter is present and he should also continue with physical, occupational, and speech therapy after discharge. JING/KIMO Voice ID: [id number] Report ID: [id number]
[2024-01-11 04:31] LABS: Absolute Eosinophils 0.2 K/uL (0-0.5); Absolute Lymphocytes (CBC) 0.9 K/uL (0.7-4.9); Absolute Monocytes 0.7 K/uL (0.1-1.3); Absolute Neutrophil 4.3 K/uL (1.8-8.0); Basophils % 0.3 % (0-1.3); Eosinophils % 2.5 % (0-4.4); Hematocrit 40.6 % (39.6-49.0); Hemoglobin 13.8 g/dL (13.6-17.9); Lymphocytes % 14.1 % (15.3-44.8); MCH 34.1 pg (27.0-35.0); MCV 100.2 fL (80-100); MPV 10.2 fL (7.6-11.3); Monocytes % 11.5 % (3.3-12.3); Neutrophils % 71.6 % (41.7-73.7); Nucleated Red Blood Cells % 0.1 % (0-0); Platelets 173 thou/uL (152-406); RBC Red Blood Cell Count 4.05 M/uL (4.33-5.43); Red Cell Distribution Width 13.3 % (12.1-15.2)
[2024-01-11 04:54] LABS: Albumin 3.7 g/dL (3.4-5.0); Anion Gap 6.8 mEq/L (5.0-15.0); Magnesium 2.2 mg/dL (1.6-2.4); Potassium 3.8 mEq/L (3.5-5.1); Prealbumin 21.8 mg/dL (20-40)
[2024-01-11] MEDS: CYANOCOBALAMIN 1000MCG/ML INJ IM ONE (16:27)
--- NOTE | 2024-01-11 20:55 | PN ---
Date of Progress Note: 01/11/2024 Time Of Service: 1:35 p.m. Subjective: Mr. Benitez is in a chair at the nursing station. He is very jovial, interacting with [facility] staff, but he does still have episodic confusion and is being observed carefully at the nursing sta tion during the day. Review of Systems: No fevers, chills. No nausea, vomiting. No myalgias, arthralgias, rash. Physical Examination: Vital Signs: Blood pressure 116/69, pulse 73, respiratory rate 18, temperature 97.3, O2 saturation 9 8%. General: Mr. Benitez is resting in a chair. He does have his hat on. He is in no severe di stress. HEENT: He is normocephalic, atraumatic. Sclerae anicteric. Oropharynx pink and moist. Neck: Supple. Chest: Clear. Heart: Regular. Extremities: No significant edema or cyanosis. Neuro: He does follow simple commands, but has difficulty following complex commands. Laboratory Studies: White blood cell count 6.0, hemoglobin 13.8, platelets 173. Sodium 140, potassi um 3.8, chloride 106, carbon dioxide 31, BUN 35, creatinine 1.43, glucose range up to 127, calcium 9. 6, magnesium 2.2, albumin 3.7, prealbumin 21.8. X-ray/imaging: No new x-rays or imaging. Medications: Medications have been reviewed and are unchanged. He has Tylenol as needed for pain, m elatonin for his insomnia has been added and increased to 6 mg daily. Progress Made With Physical, Occupational, And Speech Therapy: Today, he ambulated 250 feet twice an d 175 feet once with contact guard assistance and verbal cues. He mobilized a wheelchair 500 feet wi standby assistance. He is noted to be easily distracted. With occupational therapy, [id number] ot transfer from wheelchair to toilet with standby assistance. Today, he ambulated with a rolling wa lker 250 feet standby to contact guard assistance. Did dynamic sitting activities with a balloon bat /ball toss and lateral sliding left and right on the mat and also trunk rotations. With speech thera py, he can name common objects with 95% accuracy during confrontational naming tasks for real objects . Mr. Benitez is making progress with his physical and occupational therapy. Cognition remains a signif icant challenge as he has moderate cognitive impairment. Assessment: Mr. Benitez is a 73-year-old patient in rehabilitation unit with metabolic encephalopathy , likely imposed on his chronic cognitive impairment. He still has moderate to significant cognitive impairment and will likely not be able to have good safety awareness and will require 24-hour superv ision to reduce risk of injury and fall. He also has diabetes mellitus, diabetic peripheral neuropat hy. He has hypertension, urinary tract infection, decreased physical functioning, decreased mobility , gout, and dementia with some psychotic features. Plan: 1.He will continue with physical, occupational, and speech therapy for 3.5 hours, 5 of 7 days. 2.Continue all medications as needed. Continue with DVT prophylaxis. Continue with B12 supplementa tion. He is on Seroquel, risperidone, Lyrica, metformin, Namenda, melatonin, Lasix, folic acid, Love nox, donepezil, Lipitor, aspirin, allopurinol for gout, and Tylenol for pain. Comorbidities That Are Impacting His Rehabilitation: The poor cognitive functioning which is likely a superimposed acute on chronic issue is making difficult to cope for him to be able to return home safely and he will likely require 24-hour supervision and family has been informed of this and appear to work with him. JING/KIMO Voice ID: [id number] Report ID: [id number]
[2024-01-11] MEDS ORDERED: ZIPRASIDONE MESYLA 20 MG/VIAL IM PRN (23:04)
[2024-01-11] MEDS ORDERED: WATER FOR INJ,STERILE 10 ML IM PRN (23:04)
[2024-01-11] MEDS: ZIPRASIDONE MESYLA 20 MG/VIAL IM ONE ×2 (23:06→23:15)
[2024-01-11] MEDS: WATER FOR INJ,STERILE 10 ML ONE (23:30)
[2024-01-12] MEDS: LIDOCAINE 4% PATCH TOP SCH (11:28)
--- NOTE | 2024-01-12 13:13 | P.RH.PN ---
Estimated Length of Stay: 7 Expected Discharge Date: 01/13/24 Discharge Disposition Plan: Home Family Support: Yes Rn Informatics Goal: Mobility, Transfers, Self Care Vital Signs: Last Vital Signs Temp 97.3 F 01/12/24 08:00 Pulse 66 01/12/24 09:23 Resp 16 01/12/24 08:00 BP 108/77 01/12/24 09:23 Pulse Ox 98 01/12/24 08:00 Laboratory: Laboratory Last Values WBC 6.00 thou/uL (4.3-10.9) 01/11/24 04:00 RBC 4.05 M/uL (4.33-5.43) L 01/11/24 04:00 Hgb 13.8 g/dL (13.6-17.9) 01/11/24 04:00 Hct 40.6 % (39.6-49.0) 01/11/24 04:00 MCV 100.2 fL (80-100) H 01/11/24 04:00 MCH 34.1 pg (27.0-35.0) 01/11/24 04:00 MCHC 34.0 g/dL (32.0-36.0) 01/11/24 04:00 RDW 13.3 % (12.1-15.2) 01/11/24 04:00 Plt Count 173 thou/uL (152-406) 01/11/24 04:00 MPV 10.2 fL (7.6-11.3) 01/11/24 04:00 Neutrophils % 71.6 % (41.7-73.7) 01/11/24 04:00 Lymphocytes % 14.1 % (15.3-44.8) L 01/11/24 04:00 Monocytes % 11.5 % (3.3-12.3) 01/11/24 04:00 Eosinophils % 2.5 % (0-4.4) 01/11/24 04:00 Basophils % 0.3 % (0-1.3) 01/11/24 04:00 Absolute Neutrophils 4.3 K/uL (1.8-8.0) 01/11/24 04:00 Absolute Lymphocytes 0.9 K/uL (0.7-4.9) 01/11/24 04:00 Absolute Monocytes 0.7 K/uL (0.1-1.3) 01/11/24 04:00 Absolute Eosinophils 0.2 K/uL (0-0.5) 01/11/24 04:00 Absolute Basophils 0.0 K/uL (0-0.5) 01/11/24 04:00 Sodium 140 mEq/L (136-145) 01/11/24 04:00 Potassium 3.8 mEq/L (3.5-5.1) 01/11/24 04:00 Chloride 106 mEq/L (98-107) 01/11/24 04:00 Carbon Dioxide 31 mEq/L (21-32) 01/11/24 04:00 Anion Gap 6.8 mEq/L (5.0-15.0) 01/11/24 04:00 BUN 37 mg/dL (7-18) H 01/11/24 04:00 Creatinine 1.43 mg/dL (0.70-1.30) H 01/11/24 04:00 Est GFR (CKD-EPI) 51 ml/min (=/>90) L 01/11/24 04:00 Glucose 127 mg/dL (74-106) H 01/11/24 04:00 POC Glucose 97 mg/dL (65-120) 01/12/24 07:04 Calcium 9.6 mg/dL (8.5-10.1) 01/11/24 04:00 Magnesium 2.2 mg/dL (1.6-2.4) 01/11/24 04:00 Albumin 3.7 g/dL (3.4-5.0) 01/11/24 04:00 Prealbumin 21.8 mg/dL (20-40) 01/11/24 04:00 Weight: 217 lb 14.4 oz Wound Present: No Closed Surgical Incision Present: No Negative Pressure Wound Therapy Present: No Physician Update: SLUMS 1, BIMS 0, No retention of information. No significant short term memory. He will discharge to [facility] in AM. Walking up to 750' with CGA, up and down 30 steps. Supervision for all ADLs. Will d/c in AM. Summary: Patient's care plan and residential goals have been reviewed and revised as necessary. Please see the Rehabilitation Signature page for all necessary signatures.
[2024-01-13 07:09] VITALS: BP 143/76; TEMP 96.8
[2024-01-13] MEDS: APIXABAN 2.5 MG TABLET PO SCH (09:22)
== END 2024-01-13 11:41 | disposition home or self-care (01) | DRG 71 ==
LOC: 5TH 20:35
PROVIDERS: ADMIT Psychiatry & Neurology Neurology with Special Qualifications in Child Neurology; ATTEND Psychiatry & Neurology Neurology with Special Qualifications in Child Neurology
DX: G93.41 Metabolic encephalopathy (principal); F05 Delirium due to known physiological condition; N39.0 Urinary tract infection, site not specified; E11.40 Type 2 diabetes mellitus with diabetic neuropathy, unspecified; I10 Essential (primary) hypertension; R53.81 Other malaise; E86.0 Dehydration; E78.5 Hyperlipidemia, unspecified; F03.90 Unspecified dementia, unspecified severity, without behavioral disturbance, psychotic disturbance, mood disturbance, and anxiety; G47.00 Insomnia, unspecified; F28 Other psychotic disorder not due to a substance or known physiological condition; M10.9 Gout, unspecified
CPT/HCPCS: 36415; 80048; 82040; 82947; 83735; 84134; 85025; 92523; 97110; 97112; 97116; 97129; 97161; 97165; 97530; 97542; J1650; J2001; J3420; J3486

== ENCOUNTER 2024-05-22 14:43 | Inpatient (IN) | payer OTHER, MEDICARE ==
--- NOTE | 2024-05-22 15:34 | RAD REPORT ---
EXAM DESCRIPTION: CT - Head Brain Wo Cont - 05/22/2024 3:22 pm CLINICAL HISTORY: DECLINING STATE Headache, drowsiness COMPARISON: Head Brain Wo Cont dated 01/02/2024; Head Brain W/Wo Con dated 05/08/2020; Head C Spine Mp r Wo Con dated 12/17/2023 TECHNIQUE: All CT scans are performed using dose optimization technique as appropriate and may inclu de automated exposure control or mA/KV adjustment according to patient size. FINDINGS: There is motion degradation present. No intracranial hemorrhage, hydrocephalus or extra-ax ial fluid collection.Mild generalized brain atrophy is present with mild periventricular and deep whi te matter chronic microvascular ischemic changes.No areas of brain edema or evidence of midline shift . The paranasal sinuses and mastoids are clear. The calvarium is intact. IMPRESSION: No acute intracranial abnormality.
--- NOTE | 2024-05-22 16:07 | RAD REPORT ---
EXAM DESCRIPTION: RAD - Chest Single View - 05/22/2024 3:51 pm CLINICAL HISTORY: MALAISE Chest pain. COMPARISON: <Comparisons> FINDINGS: Portable technique limits examination quality. The lungs are grossly clear. The heart is mildly enlarged. No displaced fractures.Examination is mild ly limited by patient rotation. IMPRESSION: No acute intrathoracic process suspected.
[2024-05-22 16:54] LABS: Absolute Lymphocytes (CBC) 0.9 K/uL (0.7-4.9); Absolute Monocytes 1.1 K/uL (0.1-1.3); Absolute Neutrophil 8.7 K/uL (1.8-8.0); Basophils % 0.3 % (0-1.3); Eosinophils % 0.4 % (0-4.4); Hematocrit 47.4 % (39.6-49.0); Hemoglobin 15.7 g/dL (13.6-17.9); Lymphocytes % 8.4 % (15.3-44.8); MCH 33.7 pg (27.0-35.0); MCHC 33.2 g/dL (32.0-36.0); MCV 101.6 fL (80-100); Monocytes % 9.9 % (3.3-12.3); Nucleated Red Blood Cells % 0.2 % (0-0); Platelets 205 thou/uL (152-406); RBC Red Blood Cell Count 4.67 M/uL (4.33-5.43); Red Cell Distribution Width 12.6 % (12.1-15.2)
[2024-05-22 17:01] LABS: Specific Gravity 1.026 (1.005-1.030); Sqamous Epithelial None Seen /HPF (None Seen); Urine Bacteria None Seen /HPF (<20); Urine Bilirubin NEGATIVE (Negative); Urine Blood Negative (Negative); Urine Clarity Turbid (Clear); Urine Color Yellow (Yellow); Urine Crystals Unidentified Few /HPF (None Seen); Urine Culture Reflex Order NOT NEEDED; Urine Glucose NEGATIVE (Negative); Urine Ketones 1+ (Negative); Urine Microscopic Reflex YN ORDER UMIC; Urine Mucus Slight /HPF (None Seen); Urine Nitrite NEGATIVE (Negative); Urine Protein 1+ (Negative); Urine RBC None Seen /HPF (None Seen); Urine Urobilinogen 1+ (Normal); Urine WBC <5 /HPF (<5); Urine pH 6.5 (5.0-7.0)
[2024-05-22 17:08] LABS: Albumin 4.1 g/dL (3.4-5.0); Anion Gap 7.7 mEq/L (5.0-15.0); Bilirubin Total 1.5 mg/dL (0.2-1.0); Globulin 4.3 g/dL (2.3-3.5); Potassium 3.7 mEq/L (3.5-5.1); Protein, Total 8.4 g/dL (6.4-8.2)
[2024-05-22] MEDS ORDERED: NA CHLORIDE 0.9% 1,000 ML ONE (17:33)
--- NOTE | 2024-05-22 18:40 | EDPHYS ---
Physician Documentation [facility] Name: Omar Benitez Age: 73 yrs Sex: Male : 1950 Arrival Date: 05/22/2024 Time: 14:43 Bed 26 Private MD: ED Physician Enrico Workman HPI: 05/22 14:54 This 73 yrs old Male presents to ER via Unassigned with complaints of weakness. kb 14:54 Pt is a 73 year old male who presents for weakness, decreased appetite, and declining kb state. EMS reports daughter called 911 due to concerns about declining health over the past several weeks. States he hasn't had much of an appetite for a few days. Pt has a history of dementia. . Historical: - Allergies: 15:28 Levaquin; ld1 15:28 PENICILLINS; ld1 - PMHx: 15:28 Cellulitis; diabetes mellitus; Hypercholesterolemia; Hypertensive disorder; ld1 Hypothyroidism; insomnia; osteoarthritis; PTSD; Dementia; - Immunization history:: Adult Immunizations up to date. - Infectious Disease History:: Denies. - Social history:: Smoking status: Patient denies any tobacco usage or history of. ROS: 14:54 Constitutional: As per HPI kb Exam: 19:29 Constitutional: This is a well developed, well nourished patient who is awake, alert, kb and in no acute distress. Head/Face: Normocephalic, atraumatic. ENT: Moist Mucous membranes Cardiovascular: Regular rate Respiratory: Respirations even and unlabored. No increased work of breathing. Talking in full sentences Abdomen/GI: Soft, non-tender. No distention MS/ Extremity: Pulses equal, no cyanosis. Neurovascular intact. Full, normal range of motion. 19:29 Skin: cellulitis, that is mild, on the right garcia, 19:29 Neuro: Orientation: to person, Vital Signs: 15:29 Weight 104.33 kg; Height 5 ft. 10 in. ; Pain 0/10; ld1 15:31 BP 129 / 71; Pulse 98; Resp 18; Temp 97.8(TE); Pulse Ox 98% on R/A; ld1 17:59 BP 132 / 68; Pulse 96; Resp 18; Pulse Ox 99% on R/A; ld1 15:29 Body Mass Index 33.00 (104.33 kg, 177.8 cm) ld1 15:29 Pain Scale: Adult ld1 MDM: 14:47 Patient medically screened. 14:54 Data reviewed: vital signs, nurses notes. Historians other than the Patient: EMS: [facility]. 19:30 Differential diagnosis: cardiac arrhythmia, CVA, generalized weakness, cellulitis, uti, kb dementia. Consideration of Admission/Observation Patient was admitted/placed on observation. Escalation of care including admission/observation considered. Management of patient was discussed with the following: Hospitalist: Dr Magallon accepts pt for admission. Counseling: I had a detailed discussion with the patient and/or guardian regarding the historical points, exam findings, and any diagnostic results supporting the discharge/admit diagnosis, lab results, radiology results, the need for further work-up and treatment in the hospital. 05/22 14:48 Order name: CBC with Diff; Complete Time: 17:07 05/22 14:48 Order name: CMP; Complete Time: 17:08 05/22 14:48 Order name: Lactate w/ 2H reflex if indic.; Complete Time: 17:10 05/22 14:48 Order name: Protime (+inr) 05/22 14:48 Order name: Ptt, Activated 05/22 14:48 Order name: Urinalysis w/ reflexes; Complete Time: 17:07 05/22 17:58 Order name: Blood Culture Adult (2) 05/22 19:10 Order name: Ghost Lactate-NO COLLECT Timer; Complete Time: 19:13 [facility] 05/22 21:56 Order name: Lactate Sepsis 2 HR Follow-up; Complete Time: 21:57 [facility] 05/23 03:44 Order name: Glucose, Ancillary Testing [facility] 05/23 05:51 Order name: CBC with Automated Diff [facility] 05/23 06:02 Order name: Comprehensive Metabolic Panel [facility] 05/23 07:22 Order name: Glucose, Ancillary Testing [facility] 05/23 11:59 Order name: Glucose, Ancillary Testing [facility] 05/22 14:48 Order name: Chest Single View XRAY; Complete Time: 16:16 05/22 15:03 Order name: CT Head Brain wo Cont; Complete Time: 15:37 05/22 17:28 Order name: US Extremity Venous Unilateral Ltd; Complete Time: 19:25 05/22 14:48 Order name: EKG; Complete Time: 14:49 kb 05/22 14:48 Order name: Accucheck; Complete Time: 16:43 kb 05/22 14:48 Order name: Cardiac monitoring; Complete Time: 17:47 kb 05/22 14:48 Order name: EKG - Nurse/Tech; Complete Time: 17:47 kb 05/22 14:48 Order name: IV Saline Lock - Large Bore; Complete Time: 16:43 kb 05/22 14:48 Order name: Labs collected and sent; Complete Time: 16:43 kb 05/22 14:48 Order name: O2 Per Protocol; Complete Time: 15:32 kb 05/22 14:48 Order name: O2 Sat Monitoring; Complete Time: 15:32 kb 05/22 14:48 Order name: Vital Signs; Complete Time: 15:32 kb 05/22 16:56 Order name: Labs - recollect needed: recollect blue top; Complete Time: 17:47 05/22 19:13 Order name: Misc. Order: please draw repeat lactate; Complete Time: 21:15 kb Administered Medications: 17:47 Drug: NS 0.9% IV 1000 ml IV at 1000 ml once Route: IV; Rate: 1000 ml; Site: left ld1 forearm; 21:20 Drug: vancoMYCIN IVPB 1 grams IVPB once over 2 hrs; draw blood cultures before ha1 administration Route: IVPB; Infused Over: 2 hrs; Site: left antecubital; Disposition Summary: 05/22/24 18:40 Hospitalization Ordered Notes: Hospitalization Status: Observation kb Provider: Hamida Magallon Condition: Stable kb Problem: new kb Symptoms: are unchanged kb Bed/Room Type: Standard kb Location: Telemetry/MedSurg (observation)(05/23/24 11:32) jr12 Room Assignment: 230(05/23/24 11:32) jr Diagnosis - Weakness kb - Dehydration kb - Cellulitis of right lower limb kb Forms: - Medication Reconciliation Form kb - SBAR form kb - Leadership Thank You Letter kb Signatures: Dispatcher [employer] EDLisa Boo FNP-C FNP-Ckb Dirrim, Barbara bd Sims, Lauren, RN RN ld1 Nicole Bailey RN RN vc1 Maih Ca RN RN ha1 Ayana Díaz jr12 Corrections: (The following items were deleted from the chart) 14:49 14:49 CBC+H.LAB.BRZ ordered. EDMS EDMS 14:49 14:49 COMPREHENSIVE METABOLIC PANEL+C.LAB.BRZ ordered. EDMS EDMS 14:49 14:49 LACTATE+C.LAB.BRZ ordered. EDMS EDMS 14:49 14:49 PROTIME (+INR)+COAG.LAB.BRZ ordered. EDMS EDMS 14:49 14:49 PTT, ACTIVATED+COAG.LAB.BRZ ordered. EDMS EDMS 14:49 14:49 Urinalysis+U.LAB.BRZ ordered. EDMS EDMS 17:58 17:50 Labs - recollect needed ordered. bd ld1 22:38 18:40 Telemetry/MedSurg (observation) kb vc1 22:38 18:40 kb 1 05/23 11:32 05/22 22:38 [facility] ER HOLD [facility] jr12 05/23 11:32 05/22 22:38 ERHOLD- 1 jr12
--- NOTE | 2024-05-22 18:40 | ER ---
Nurse's Notes [facility] Name: Omar Benitez Age: 73 yrs Sex: Male : 1950 Arrival Date: 05/22/2024 Time: 14:43 Bed 26 Private MD: Diagnosis: Weakness;Dehydration;Cellulitis of right lower limb Presentation: 05/22 15:27 Chief complaint: EMS states: toned out Sodalis for worsening dementia/failure to ld1 thrive. Coronavirus screen: At this time, the client does not indicate any symptoms associated with coronavirus-19. Ebola Screen: No symptoms or risks identified at this time. Initial Sepsis Screen: Does the patient meet any 2 criteria? No. Patient's initial sepsis screen is negative. Does the patient have a suspected source of infection? No. Patient's initial sepsis screen is negative. Risk Assessment: Do you want to hurt yourself or someone else? Patient reports no desire to harm self or others. Onset of symptoms was May 22, 2024. 15:27 Method Of Arrival: EMS: [facility] ld1 15:27 Acuity: ELADIO 3 ld1 Triage Assessment: 15:28 General: Appears in no apparent distress. comfortable, Behavior is cooperative, ld1 appropriate for age, anxious. Pain: Denies pain. EENT: No signs and/or symptoms were reported regarding the EENT system. Neuro: Level of Consciousness is confused, Oriented to none. Cardiovascular: Capillary refill < 3 seconds Patient's skin is warm and dry. Respiratory: Airway is patent Respiratory effort is even, unlabored. GI: Abdomen is flat, non-distended. : No signs and/or symptoms were reported regarding the genitourinary system. Derm: No signs and/or symptoms reported regarding the dermatologic system. Musculoskeletal: No signs and/or symptoms reported regarding the musculoskeletal system. Historical: - Allergies: 15:28 Levaquin; ld1 15:28 PENICILLINS; ld1 - PMHx: 15:28 Cellulitis; diabetes mellitus; Hypercholesterolemia; Hypertensive disorder; ld1 Hypothyroidism; insomnia; osteoarthritis; PTSD; Dementia; - Immunization history:: Adult Immunizations up to date. - Infectious Disease History:: Denies. - Social history:: Smoking status: Patient denies any tobacco usage or history of. Screenin:30 [facility] ED Fall Risk Assessment (Adult) History of falling in the last 3 months, ld1 including since admission No falls in past 3 months (0 pts) Confusion or Disorientation Yes (5 pts) Intoxicated or Sedated No (0 pts) Impaired Gait No (0 pts) Mobility Assist Device Used No (0 pt) Altered Elimination No (0 pt) Score/Fall Risk Level 0 - 2 = Low Risk Oriented to surroundings, Maintained a safe environment, Educated pt \T\ family on fall prevention, incl call for assistance when getting out of bed, Assessed \T\ reinforced patient's understanding of fall precautions, Provided non-skid footwear, Hourly rounding (assess needs \T\ fall precautionary measures) done, Used ambulatory aids as needed (educated on \T\ assisted with), Used gait belt as appropriate. Abuse screen: Denies threats or abuse. Denies injuries from another. Nutritional screening: No deficits noted. Tuberculosis screening: No symptoms or risk factors identified. Assessment: 15:30 Reassessment: See triage assessment. ld1 17:50 Reassessment: Patient appears in no apparent distress at this time. No changes from ld1 previously documented assessment. Patient and/or family updated on plan of care and expected duration. Pain level reassessed. Daughter at bedside with patient. Ultrasound completed at this time. Vital Signs: 15:29 Weight 104.33 kg; Height 5 ft. 10 in. ; Pain 0/10; ld1 15:31 BP 129 / 71; Pulse 98; Resp 18; Temp 97.8(TE); Pulse Ox 98% on R/A; ld1 17:59 BP 132 / 68; Pulse 96; Resp 18; Pulse Ox 99% on R/A; ld1 15:29 Body Mass Index 33.00 (104.33 kg, 177.8 cm) ld1 15:29 Pain Scale: Adult ld1 ED Course: 14:47 Patient arrived in ED. kb 14:47 Lisa Rodriguez FNP-C [facility] kb 14:47 Enrico Workman MD is Attending Physician. kb 15:13 Arm band placed on Patient placed in an exam room, on a stretcher. ll1 15:24 CT Head Brain wo Cont In Process Unspecified. EDMS 15:28 Triage completed. ld1 15:30 Patient has correct armband on for positive identification. Placed in gown. Bed in low ld1 position. Call light in reach. Side rails up X2. insulation nozzleman on. Pulse ox on. NIBP on. Door closed. Noise minimized. Warm blanket given. 15:30 No provider procedures requiring assistance completed. ld1 15:53 Chest Single View XRAY In Process Unspecified. EDMS 16:42 Janett Garay, RN is Primary Nurse. ld1 16:42 Inserted saline lock: 22 gauge in left forearm, using aseptic technique. Blood ld1 collected. Flushed with 10 mL NS. 16:43 Straight cath inserted, using sterile technique, 16 Fr. Returned clear yellow urine. ld1 Patient tolerated well. 16:43 Urinalysis w/ reflexes Sent. ld1 16:43 Lactate w/ 2H reflex if indic. Sent. ld1 16:43 CBC with Diff Sent. ld1 16:43 CMP Sent. ld1 16:43 Protime (+inr) Sent. ld1 16:43 Ptt, Activated Sent. ld1 16:50 Warm blanket given. ll1 18:01 US Extremity Venous Unilateral Ltd In Process Unspecified. EDMS 18:39 Hamida Magallon MD is Hospitalizing Provider. kb 05/23 01:00 Provided Education on: admission. cp4 01:00 Patient admitted, IV remains in place. cp4 06:04 Cleaned of incontinence. vk Administered Medications: 05/22 17:47 Drug: NS 0.9% IV 1000 ml IV at 1000 ml once Route: IV; Rate: 1000 ml; Site: left ld1 forearm; 21:20 Drug: vancoMYCIN IVPB 1 grams IVPB once over 2 hrs; draw blood cultures before ha1 administration Route: IVPB; Infused Over: 2 hrs; Site: left antecubital; Medication: 05/23 01:00 VIS not applicable for this client. cp4 Outcome: 05/22 18:40 Decision to Hospitalize by Provider. kb 05/23 01:00 Admitted to ER Hold. [facility]. cp4 Condition: stable Instructed on the need for admit, 12:33 Patient left the ED. bp Signatures: Dispatcher [employer] EDNV Lisa Rodriguez FNP-C FNP-Ckb Peltier, Brian, RN RN bp Avinash Victoria RN RN [facility] Janett Garay RN RN [facility] Mahi Ca RN RN [facility] Diane Tidwell cp4 Edel Reyes
--- NOTE | 2024-05-22 19:23 | RAD REPORT ---
EXAM DESCRIPTION: US - Extremity Venous Uni Ltd - 05/22/2024 5:59 pm CLINICAL HISTORY: SWELLING Leg swelling and edema. COMPARISON: <Comparisons> FINDINGS: Right lower extremity venous system was interrogated with Doppler technique. Normal flow, compressibility and augmentation was noted. There is no DVT present. IMPRESSION: No evidence of right lower extremity deep venous thrombosis.
--- NOTE | 2024-05-22 19:27 | P.HP ---
Certification for Inpatient Patient admitted to: Observation Practitioner: I am a practitioner with admitting privileges, knowledge of patient current condition, hospital course, and medical plan of care. Services: Services provided to patient in accordance with Admission requirements found in Title 42 Section 412.3 of the Code of Federal Regulations Patient History Date of Service: 05/23/24 Reason for admission: weakness History of Present Illness: 73-year-old male with history of dementia presented from senior living with progressive weakness and altered mental status. Daughter at bedside and reports that patient has had increased confusion over the last several months. Notes that progressive weakness more acutely in the past week. His baseline he does have dementia and does have episodes of confusion. Reports that he normally moves in wheelchair. But has had progressive weakness. She denies any recent infections, cough, abdominal pain or diarrhea. She is unaware of last bowel movement. She does report that he appears to be leaning more to one side which is new. The patient does have history of cellulitis. And does have some redness noted on his right lower extremity. He also does have appearance of rash on his right groin. Initial blood work was reviewed in the emergency room Which showed a WBC of 10.7, creatinine was 1.66 which is slightly higher than previous creatinine urinalysis 1+ ketones. A head CT as well as a chest x-ray were done Allergies levofloxacin [From Levaquin] Allergy (Verified 01/02/24 05:51) Hives/Rash Penicillins Allergy (Verified 01/02/24 05:51) Shortness of breath Home Medications: Allopurinol 1 tab PO DAILY 01/03/24 Aspirin [Aspirin EC] 81 mg PO DAILY 01/03/24 Bisacodyl [Dulcolax] 5 mg PO BEDTIME 01/03/24 Cyanocobalamin [Vitamin B-12*] 1 tab PO DAILY 01/03/24 Donepezil HCl 10 mg PO BEDTIME 01/03/24 Folic Acid 1 mg PO DAILY 01/03/24 Memantine HCl [Namenda*] 10 mg PO BID 01/03/24 Metformin HCl [Glucophage*] 500 mg PO DAILY WITH BREAKFAST 01/03/24 Pravastatin [Pravachol*] 1 tab PO BEDTIME 01/03/24 Pregabalin [Lyrica*] 75 mg PO BID 01/03/24 Risperidone [Risperdal] 0.5 mg PO TIDP PRN 01/03/24 Quetiapine [Seroquel*] 50 mg PO BID #60 tab 01/06/24 Furosemide [Lasix] 20 mg PO BIDL 01/07/24 Lidocaine 4% Patch [Lidoderm 5% Patch*] 1 patch TOP DAILY pat 01/13/24 - Past Medical/Surgical History Diabetic: Yes -: Dementia -: htn -: cataract sx -: dental implant -lower - Social History Alcohol use: No CD- Drugs: No Caffeine use: No Review of Systems 10-point ROS is otherwise unremarkable General: Weakness Neurological: Weakness, Confusion Physical Examination - Physical Exam General: Disheveled, Mild distress HEENT: Atraumatic, Normocephalic Neck: Supple Respiratory: Clear to auscultation bilaterally Cardiovascular: Regular rate/rhythm Gastrointestinal: Soft and benign, Non-distended Musculoskeletal: No contractures Integumentary: Other (Erythema noted in right lower extremity with venous stasis changes, right groin swelling with erythema) - Studies Laboratory Data (last 24 hrs) 05/22/24 05/22/24 16:40 16:40 WBC 10.70 Hgb 15.7 Hct 47.4 Plt Count 205 Sodium 141 Potassium 3.7 BUN 37 H Creatinine 1.66 H Glucose 126 H Total Bilirubin 1.5 H AST 28 ALT 16 Alkaline Phosphatase 124 H Assessment and Plan - Problems (Diagnosis) (1) Altered mental status Current Visit: Yes Status: Acute (2) Cellulitis Current Visit: Yes Status: Acute (3) Acute kidney injury Current Visit: Yes Status: Acute (4) Diabetes Current Visit: Yes Status: Acute - Plan 73-year-old male with history of dementia presented from senior living with progressive weakness and altered mental status. Dementia Weakness Altered mental status --Differential include worsening of dementia, dehydration, acute intracranial abnormality --CT head done unremarkable --Urinalysis, chest x-ray not indicative of infection, he does have concern for cellulitis --Restart home medication once medication reconciliation completed --Will check MRI brain Acute kidney injury Lactic acidosis --initial lactic acid 2.5, repeat ordered --Concern for dehydration --Will gently hydrate, repeat labs Cellulitis --History of cellulitis right lower extremity will start on Rocephin and vancomycin Rash -- Appears to be fungal will start topical nystatin Diabetes --FSBS, sliding scale insulin Macrocytosis --Noted to be taking B12 and folate home meds Hyperlipidemia --on statin DNR/DNI - Advance Directives Does patient have a Living Will: Yes Does patient have a Durable POA for Healthcare: No
[2024-05-22] MEDS ORDERED: VANCOMYCIN 1 GM/VIAL ONE (19:46)
[2024-05-22] MEDS ORDERED: NA CHLORIDE 0.9% 250 ML ONE (19:47)
[2024-05-22] MEDS ORDERED: ACETAMINOPHEN 500 MG TAB PO PRN (22:03)
[2024-05-22] MEDS: VANCOMYCIN 0.75 GM in NA CHLORIDE 0.9% 150 ML IVPB SCH (22:03)
[2024-05-22] MEDS: NA CHLORIDE 0.9% 1,000 ML IV SCH (22:03)
[2024-05-22] MEDS: INSULIN REGULAR (HUMAN) 100 UNIT/ML SQ SCH (22:03)
[2024-05-23 00:13] VITALS: BMI 25.1
[2024-05-23] MEDS: VANCOMYCIN 500 MG in NA CHLORIDE 0.9% 100 ML IVPB ONE (00:30)
[2024-05-23] MEDS ORDERED: NA CHLORIDE 0.9% 1,000 ML ONE (00:41)
[2024-05-23] MEDS ORDERED: VANCOMYCIN 500 MG/VIAL ONE (00:41)
[2024-05-23] MEDS ORDERED: NA CHLORIDE 0.9% 100 ML ONE ×2 (00:42→09:50)
[2024-05-23] MEDS ORDERED: LORazepam 2 MG/ML VIAL ONE ×3 (00:54→09:26)
[2024-05-23] MEDS: LORazepam 2 MG/ML VIAL IV ONE ×2 (01:04→09:21)
[2024-05-23 05:42] LABS: Absolute Eosinophils 0.1 K/uL (0-0.5); Absolute Lymphocytes (CBC) 1.2 K/uL (0.7-4.9); Absolute Monocytes 0.9 K/uL (0.1-1.3); Basophils % 0.4 % (0-1.3); Eosinophils % 0.9 % (0-4.4); Hematocrit 41.5 % (39.6-49.0); Hemoglobin 13.9 g/dL (13.6-17.9); Lymphocytes % 12.6 % (15.3-44.8); MCH 33.6 pg (27.0-35.0); MCHC 33.5 g/dL (32.0-36.0); MCV 100.5 fL (80-100); MPV 9.8 fL (7.6-11.3); Neutrophils % 76.1 % (41.7-73.7); Platelets 172 thou/uL (152-406); RBC Red Blood Cell Count 4.13 M/uL (4.33-5.43); Red Cell Distribution Width 12.7 % (12.1-15.2)
[2024-05-23 06:01] LABS: Albumin 3.5 g/dL (3.4-5.0); Albumin/Globulin Ratio 0.9 (1.1-1.8); Anion Gap 8.3 mEq/L (5.0-15.0); Bilirubin Total 1.3 mg/dL (0.2-1.0); Globulin 3.8 g/dL (2.3-3.5); Potassium 3.3 mEq/L (3.5-5.1); Protein, Total 7.3 g/dL (6.4-8.2)
[2024-05-23] MEDS: QUETIAPINE 25 MG TAB PO SCH (09:00)
[2024-05-23] MEDS: CEFTRIAXONE 1,000 MG in NA CHLORIDE 0.9% 50 ML IVPB SCH (09:00)
[2024-05-23] MEDS: ASPIRIN EC 81 MG TAB PO SCH (09:00)
[2024-05-23] MEDS: ENOXAPARIN 40 MG/0.4 ML SQ SCH (09:00)
[2024-05-23] MEDS ORDERED: ENOXAPARIN 40 MG/0.4 ML SQ ONE (09:50)
[2024-05-23] MEDS ORDERED: CEFTRIAXONE 1000 MG/VIAL ONE (09:50)
[2024-05-23] MEDS ORDERED: ASPIRIN EC 81 MG TAB PO ONE (09:50)
--- NOTE | 2024-05-23 12:51 | P.PN ---
Subjective Date of Service: 05/23/24 Chief Complaint: weakness Pt is resting comfortably in bed. CT head is unremarkable. Pt was unable to stay still for MRI brain. No other complaints. Review of Systems is unable to be obtained Physical Examination - Vital Signs Temperature: 98.7 F Blood Pressure: 140/87 Pulse: 71 Respirations: 15 Pulse Ox (%): 96 - Physical Exam General: In no apparent distress HEENT: Atraumatic, Normocephalic, PERRLA Neck: Supple, 2+ carotid pulse no bruit, JVD not distended Respiratory: Clear to auscultation bilaterally, Normal air movement Cardiovascular: No edema, Normal pulses, Regular rate/rhythm, Normal S1 S2 Capillary refill: <2 Seconds Gastrointestinal: Normal bowel sounds, Soft and benign, Non-distended Musculoskeletal: No clubbing, No swelling, No contractures Integumentary: No rashes, No breakdown Neurological: Normal gait, Normal speech, Normal strength at 5/5 x4 extr Lymphatics: No axilla or inguinal lymphadenopathy - Studies Laboratory Data (last 24 hrs) 05/22/24 05/22/24 05/22/24 17:42 16:40 16:40 WBC 10.70 Hgb 15.7 Hct 47.4 Plt Count 205 PT Cancelled INR Cancelled APTT Cancelled Sodium 141 Potassium 3.7 BUN 37 H Creatinine 1.66 H Glucose 126 H Total Bilirubin 1.5 H AST 28 ALT 16 Alkaline Phosphatase 124 H Assessment And Plan - Plan Dementia / Weakness / Altered mental status: Pt has underlying dementia. [facility] that he not at hs baseline of able to move around in his w heelchair. Pt has been in bed for the past [address] head is unremarkable. Unable to stay still for MRI brain. Acute kidney injury: Continue IVF, avoid nephrotoxins and monitor renal function. Lactic acidosis: Initial lactic acid 2.5. Will continue IVF and trend lactate. Cellulitis: Will continue ivvanc and rocephin. F/u blood cx. Rash: Likely fungal infection. Will continue nystatin powder. Diabetes: Continue accuchek, SSI and ADA diet. Macrocytosis anemia: Will continue B12 and folate supplements. Hgb is 13.9. Hyperlipidemia: on statin DVT ppx: SCD Code: DNR/DNI Dispo: Pending hospital course.
[2024-05-23] MEDS: DONEPEZIL HCL 5 MG TAB PO SCH (21:26)
[2024-05-24] MEDS ORDERED: RISPERIDONE 0.5 MG PO PRN (07:50)
[2024-05-24 08:46] LABS: Absolute Eosinophils 0.2 K/uL (0-0.5); Absolute Lymphocytes (CBC) 0.8 K/uL (0.7-4.9); Absolute Monocytes 0.6 K/uL (0.1-1.3); Absolute Neutrophil 5.5 K/uL (1.8-8.0); Basophils % 0.3 % (0-1.3); Hematocrit 39.6 % (39.6-49.0); Hemoglobin 13.2 g/dL (13.6-17.9); Lymphocytes % 11.9 % (15.3-44.8); MCHC 33.4 g/dL (32.0-36.0); MCV 101.8 fL (80-100); MPV 9.8 fL (7.6-11.3); Neutrophils % 76.8 % (41.7-73.7); Platelets 147 thou/uL (152-406); Red Cell Distribution Width 12.8 % (12.1-15.2)
[2024-05-24 08:48] LABS: Anion Gap 9.2 mEq/L (5.0-15.0); Potassium 3.2 mEq/L (3.5-5.1)
[2024-05-24] MEDS: AMLODIPINE 5 MG TAB PO SCH (10:06)
[2024-05-24] MEDS: CYANOCOBALAMIN 1,000 MCG TAB PO SCH (10:06)
[2024-05-24] MEDS: allopurinoL 100 MG TAB PO SCH (10:06)
[2024-05-24] MEDS: PREGABALIN 75 MG CAP PO SCH (10:06)
[2024-05-24] MEDS: FOLIC ACID 1 MG TABLET PO SCH (10:06)
[2024-05-24] MEDS: VANCOMYCIN 1.5 GM in NA CHLORIDE 0.9% 500 ML IVPB SCH (10:08)
[2024-05-24] MEDS: MEMANTINE HCL 10 MG TABLET PO SCH (10:09)
[2024-05-24] MEDS: FUROSEMIDE 20 MG TABLET PO SCH (10:09)
--- NOTE | 2024-05-24 10:54 | P.PN ---
Subjective Date of Service: 05/24/24 Chief Complaint: weakness Pt is resting comfortably in bed. He was sleeping when I saw him. His daughter is at bedside. CT head is unremarkable. Pt was unable to stay still for MRI brain. No other complaints. Review of Systems is unable to be obtained Physical Examination - Vital Signs Temperature: 98.1 F Blood Pressure: 149/83 Pulse: 76 Respirations: 20 Pulse Ox (%): 95 - Physical Exam General: Alert, In no apparent distress, Confused HEENT: Atraumatic, Normocephalic, PERRLA Neck: Supple, 2+ carotid pulse no bruit, JVD not distended Respiratory: Clear to auscultation bilaterally, Normal air movement Cardiovascular: No edema, Normal pulses, Regular rate/rhythm, Normal S1 S2 Capillary refill: <2 Seconds Gastrointestinal: Normal bowel sounds, Soft and benign, Non-distended Musculoskeletal: No clubbing, No swelling, No contractures Integumentary: No rashes, No breakdown, No significant lesion Neurological: Dementia Lymphatics: No axilla or inguinal lymphadenopathy Assessment And Plan - Plan Dementia / Weakness / Altered mental status: Pt has underlying dementia. The care home noticed that he was off his baseline of being able to move around in his wheelchair. Pt has been in bed for the past [address] head is unremarkable. Unable to stay still for MRI brain. Acute kidney injury: Continue IVF, avoid nephrotoxins and monitor renal function. Lactic acidosis: Initial lactic acid 0.8 <- 2.9 <- 2.5. Will continue IVF and trend lactate. Cellulitis: Will continue ivvanc and rocephin. F/u blood cx. Rash: Likely fungal infection. Will continue nystatin powder. Diabetes: Continue accuchek, SSI and ADA diet. Htn: Will give amlodipine. Macrocytosis anemia: Will continue B12 and folate supplements. Hgb is 13.2. Hyperlipidemia: on statin DVT ppx: SCD Code: DNR/DNI Dispo: Pending hospital course.
[2024-05-24] MEDS ORDERED: VANCOMYCIN 1.5 GM in NA CHLORIDE 0.9% 500 ML IVPB SCH (12:00)
--- NOTE | 2024-05-24 13:35 | EKG ---
Test Date: 2024-05-22 Test Time: 17:40:54 Mica Patcher: Mariann LOMELI MEASUREMENT RESULTS: Intervals: Rate: 110 RI: QRSD: 128 QT: 378 QTc: 511 Wyatt: P: RI: QRS: 252 T: 18 INTERPRETIVE STATEMENTS: Sinus tachycardia with occasional premature ventricular complexes Right bundle branch block Abnormal ECG Compared to ECG 01/02/2024 00:34:12 Ventricular premature complex(es) now present Sinus bradycardia no longer present First degree AV block no longer present Electronically Signed On 05-24-24 13:31:57 CDT by Anatoliy Aviles
[2024-05-24 21:31] VITALS: O2SAT 91
[2024-05-25] MEDS: NYSTATIN PWDR 100000 UNIT/GM TOP PRN (04:10)
[2024-05-25] MEDS: VANCOMYCIN 1.5 GM in NA CHLORIDE 0.9% 500 ML IVPB SCH (10:01)
--- NOTE | 2024-05-25 11:31 | P.PN ---
Subjective Date of Service: 05/25/24 Chief Complaint: weakness Pt is resting comfortably in bed. He is more awake today. Pt is spitting out some of his meds. His daughter is at bedside. CT head is unremarkable. Pt was unable to stay still for MRI brain. He is not yet at his baseline. No other complaints. Review of Systems is unable to be obtained Physical Examination - Vital Signs Temperature: 97.2 F Blood Pressure: 144/70 Pulse: 92 Respirations: 18 Pulse Ox (%): 94 - Physical Exam General: Alert, In no apparent distress, Confused HEENT: Atraumatic, Normocephalic, PERRLA Neck: Supple, 2+ carotid pulse no bruit, JVD not distended Respiratory: Clear to auscultation bilaterally, Normal air movement Cardiovascular: No edema, Normal pulses, Regular rate/rhythm, Normal S1 S2 Capillary refill: <2 Seconds Gastrointestinal: Normal bowel sounds, Soft and benign, Non-distended Musculoskeletal: No clubbing, No swelling, No contractures Integumentary: No rashes, No breakdown, No significant lesion Neurological: Normal speech Lymphatics: No axilla or inguinal lymphadenopathy Assessment And Plan - Plan Dementia / Weakness / Altered mental status: Pt has underlying dementia. The care home noticed that he was off his baseline of being able to move around in his wheelchair. Pt has been in bed for the past [address] head is unremarkable. Unable to stay still for MRI brain. H eis not yet at his baseline. Acute kidney injury: Continue IVF, avoid nephrotoxins and monitor renal function. Lactic acidosis: Initial lactic acid 0.8 <- 2.9 <- 2.5. Will continue IVF and trend lactate. Cellulitis: Will continue iv vanc and rocephin. F/u blood cx. Rash: Likely fungal infection. Will continue nystatin powder. Diabetes: Continue accuchek, SSI and ADA diet. Htn: Will give amlodipine. Macrocytosis anemia: Will continue B12 and folate supplements. Hgb is 13.2. Hyperlipidemia: on statin DVT ppx: SCD Code: DNR/DNI Dispo: Pending hospital course.
[2024-05-25] MEDS: ATORVASTATIN 10 MG TAB PO SCH (21:00)
[2024-05-25] MEDS: HALOPERIDOL LACT 5 MG/ML INJ IV PRN (22:38)
--- NOTE | 2024-05-26 08:46 | P.PN ---
Subjective Date of Service: 05/26/24 Chief Complaint: weakness Pt is resting comfortably in bed. He is more alert and interactive today per pt's daughter. CT head is unremarkable. Pt was unable to stay still for MRI brain. No other complaints. Review of Systems is unable to be obtained Physical Examination - Vital Signs Temperature: 98.2 F Blood Pressure: 140/79 Pulse: 73 Respirations: 20 Pulse Ox (%): 95 - Physical Exam General: Alert, In no apparent distress, Confused HEENT: Atraumatic, Normocephalic, PERRLA Neck: Supple, 2+ carotid pulse no bruit, JVD not distended Respiratory: Clear to auscultation bilaterally, Normal air movement Cardiovascular: No edema, Normal pulses, Regular rate/rhythm, Normal S1 S2 Capillary refill: <2 Seconds Gastrointestinal: Normal bowel sounds, Soft and benign, Non-distended Musculoskeletal: No clubbing, No swelling, No contractures Integumentary: No rashes, No breakdown, No significant lesion, No tenderness/swelling Neurological: Normal gait, Normal speech, Normal strength at 5/5 x4 extr Lymphatics: No axilla or inguinal lymphadenopathy Assessment And Plan - Plan Dementia / Weakness / Altered mental status: Pt has underlying dementia. The longterm noticed that he was off his baseline of being able to move around in his wheelchair. Pt was in bed for [address] head is unremarkable. Unable to stay still for MRI brain. He is more interactive today per his daughter. Acute kidney injury: Continue IVF, avoid nephrotoxins and monitor renal function. Lactic acidosis: Initial lactic acid 0.8 <- 2.9 <- 2.5. Will continue IVF and trend lactate. Cellulitis: Will continue iv vanc and rocephin. F/u blood cx. Rash: Likely fungal infection. Will continue nystatin powder. Diabetes: Continue accuchek, SSI and ADA diet. Htn: Will give amlodipine. Macrocytosis anemia: Will continue B12 and folate supplements. Hgb is 13.2. Hyperlipidemia: on statin DVT ppx: SCD Code: DNR/DNI Dispo: Pending hospital course.
[2024-05-26 10:15] LABS: Absolute Eosinophils 0.1 K/uL (0-0.5); Absolute Lymphocytes (CBC) 0.9 K/uL (0.7-4.9); Absolute Monocytes 0.6 K/uL (0.1-1.3); Absolute Neutrophil 5.7 K/uL (1.8-8.0); Basophils % 0.4 % (0-1.3); Eosinophils % 1.9 % (0-4.4); Hematocrit 42.6 % (39.6-49.0); Hemoglobin 14.3 g/dL (13.6-17.9); Lymphocytes % 12.4 % (15.3-44.8); MCH 34.3 pg (27.0-35.0); MCHC 33.7 g/dL (32.0-36.0); MCV 101.8 fL (80-100); Monocytes % 8.4 % (3.3-12.3); Neutrophils % 76.9 % (41.7-73.7); Nucleated Red Blood Cells % 0.1 % (0-0); Platelets 162 thou/uL (152-406); RBC Red Blood Cell Count 4.18 M/uL (4.33-5.43); Red Cell Distribution Width 12.4 % (12.1-15.2)
[2024-05-26 10:44] LABS: Anion Gap 4.2 mEq/L (5.0-15.0); Potassium 3.2 mEq/L (3.5-5.1)
[2024-05-27 09:05] VITALS: BP 146/67; TEMP 98.1
[2024-05-27 09:14] LABS: Anion Gap 5.3 mEq/L (5.0-15.0); Potassium 3.3 mEq/L (3.5-5.1)
--- NOTE | 2024-05-27 10:07 | P.PN ---
Subjective Date of Service: 05/27/24 Chief Complaint: weakness Pt is resting comfortably in bed. He is more alert and interactive today per pt's daughter. Pt is back to her baseline. CT head is unremarkable. Pt was unable to stay still for MRI brain. No other complaints. Review of Systems is unable to be obtained Physical Examination - Vital Signs Temperature: 98.1 F Blood Pressure: 146/67 Pulse: 76 Respirations: 16 Pulse Ox (%): 96 - Physical Exam General: Alert, In no apparent distress, Confused HEENT: Atraumatic, Normocephalic, PERRLA Neck: Supple, 2+ carotid pulse no bruit, JVD not distended Respiratory: Clear to auscultation bilaterally, Normal air movement Cardiovascular: No edema, Normal pulses, Regular rate/rhythm, Normal S1 S2 Capillary refill: <2 Seconds Gastrointestinal: Normal bowel sounds, Soft and benign, Non-distended Musculoskeletal: No clubbing, No swelling, No contractures Integumentary: No rashes, No breakdown, No significant lesion Neurological: Normal tone, Sensation intact Lymphatics: No axilla or inguinal lymphadenopathy Assessment And Plan - Plan Dementia / Weakness / Altered mental status: resolved. He is back to his baseline. Pt has underlying dementia. [facility] noticed that he was off his baseline of being able to move around in his wheelchair. Pt was in bed for [address] head is unremarkable. Unable to stay still for MRI brain. He is more interactive today per his daughter. Acute kidney injury: Continue IVF, avoid nephrotoxins and monitor renal function. Lactic acidosis: Initial lactic acid 0.8 <- 2.9 <- 2.5. Will continue IVF and trend lactate. Cellulitis: Will continue iv vanc and rocephin. F/u blood cx. Rash: Likely fungal infection. Will continue nystatin powder. Diabetes: Continue accuchek, SSI and ADA diet. Htn: Will give amlodipine. Macrocytosis anemia: Will continue B12 and folate supplements. Hgb is 13.2. Hyperlipidemia: on statin DVT ppx: SCD Code: DNR/DNI Dispo: Pending hospital course. Will dc pt back to SNF soon.
[2024-05-27] MEDS: POTASSIUM CL SA 10 MEQ TAB PO ONE (10:11)
--- NOTE | 2024-05-27 13:27 | P.DS ---
Admission Date: 05/24/24 Discharge Date: 05/27/24 Disposition: TRANSFER TO [facility] Discharge Condition: GOOD Reason for Admission: weakness Brief History of Present Illness: 73-year-old male with history of dementia presented from longterm with progressive weakness and altered mental status. Daughter at bedside and reports that patient has had increased confusion over the last several months. Notes that progressive weakness more acutely in the past week. His baseline he does have dementia and does have episodes of confusion. Reports that he normally moves in wheelchair. But has had progressive weakness. She denies any recent infections, cough, abdominal pain or diarrhea. She is unaware of last bowel movement. She does report that he appears to be leaning more to one side which is new. The patient does have history of cellulitis. And does have some redness noted on his right lower extremity. He also does have appearance of rash on his right groin. Initial blood work was reviewed in the emergency room Which showed a WBC of 10.7, creatinine was 1.66 which is slightly higher than previous creatinine urinalysis 1+ ketones. A head CT as well as a chest x-ray were done Hospital Course: Pt is a 73yo male with past medical history of dementia who presented from longterm with progressive weakness and altered mental status. His daughter reports that pt had progressive weakness. He was in bed for 3 days without getting up. At baseline, he was able to move around in a wheelchair. He also presented with right leg cellulitis and rash on his right groin. On admission, lab studies show WBC 10.[address] head was unremarkable. Pt was not able to stay still for MRI brain. The weakness and AMS resolved and pt returned to his baseline, per his daughter. MIC resolved with IVF. We treated the right leg cellulitis with iv vanc and rocephin. We applied nystatin powder to the right groin rash. We continued home meds for other chronic medical problems. Vital Signs/Physical Exam: Temp Pulse Resp BP Pulse Ox 98.1 F 76 16 146/67 H 96 05/27/24 10:07 05/27/24 10:07 05/27/24 10:07 05/27/24 10:05/27/24 10:07 Laboratory Data at Discharge: WBC 7.50 thou/uL (4.3-10.9) 05/26/24 08:05 Hgb 14.3 g/dL (13.6-17.9) 05/26/24 08:05 Hct 42.6 % (39.6-49.0) 05/26/24 08:05 Plt Count 162 thou/uL (152-406) 05/26/24 08:05 PT Cancelled 05/22/24 17:42 INR Cancelled 05/22/24 17:42 APTT Cancelled 05/22/24 17:42 Sodium 146 mEq/L (136-145) H 05/27/24 08:35 Potassium 3.3 mEq/L (3.5-5.1) L 05/27/24 08:35 BUN 21 mg/dL (7-18) H 05/27/24 08:35 Creatinine 1.05 mg/dL (0.70-1.30) 05/27/24 08:35 Glucose 108 mg/dL (74-106) H 05/27/24 08:35 Magnesium 2.1 mg/dL (1.6-2.4) 05/27/24 08:35 Total Bilirubin 1.3 mg/dL (0.2-1.0) H 05/23/24 05:26 AST 29 U/L (15-37) 05/23/24 05:26 ALT 17 U/L (16-61) 05/23/24 05:26 Alkaline Phosphatase 105 U/L (45-117) 05/23/24 05:26 Home Medications: Allopurinol 1 tab PO DAILY 01/03/24 Aspirin [Aspirin EC] 81 mg PO DAILY 01/03/24 Bisacodyl [Dulcolax] 5 mg PO BEDTIME 01/03/24 Metformin HCl [Glucophage*] 500 mg PO DAILY WITH BREAKFAST 01/03/24 Pregabalin [Lyrica*] 75 mg PO BID 01/03/24 Risperidone [Risperdal] 0.5 mg PO TIDP PRN 01/03/24 Furosemide [Lasix] 20 mg PO BIDL 01/07/24 Lidocaine 4% Patch [Lidoderm 5% Patch*] 1 patch TOP DAILY pat 01/13/24 Acetaminophen [Tylenol] 650 mg PO Q6HP PRN 05/25/24 Ibuprofen [Advil] 400 mg PO Q8HP 05/25/24 Quetiapine Fumarate [Seroquel] 50 mg PO TID 05/25/24 Tetrahydrozoline HCl/Zn Sulf [Visine Allergy Relief Drop] 1 gtt EACH EYE DAILYPRN PRN 05/25/24 Trazodone HCl [Desyrel] 100 mg PO BEDTIME PRN PRN 05/25/24 Atorvastatin Calcium [Lipitor*] 10 mg PO BEDTIME 90 Days #90 tab 05/27/24 Nystatin Powder [Mycostatin (Powder)*] 1 appl TOP DAILY PRN 7 Days #1 bottle 05/27/24 New Medications: Atorvastatin Calcium [Lipitor*] 10 mg PO BEDTIME 90 Days #90 tab Nystatin Powder [Mycostatin (Powder)*] 1 appl TOP DAILY PRN 7 Days #1 bottle PRN Reason: Rash Physician Discharge Instructions: Continue ad crystal activity as tolerated. Take home meds as tolerated. Follow up with PCP nathan 1 - 2 weeks. Diet: AHA Activity: Ad crystal [facility] [Primary [facility] Provider] - 1-2 Weeks
== END 2024-05-27 14:53 | DRG 603 ==
LOC: ER 14:43 → ERHOLD 19:36 → 2ND 05-23 12:10 → OBSVTOIN 05-24 15:12
PROVIDERS: ADMIT Internal Medicine; ATTEND Hospitalist
DX: L03.115 Cellulitis of right lower limb (principal); N17.9 Acute kidney failure, unspecified; E87.20 Acidosis, unspecified; B49 Unspecified mycosis; F03.90 Unspecified dementia, unspecified severity, without behavioral disturbance, psychotic disturbance, mood disturbance, and anxiety; E86.0 Dehydration; E11.9 Type 2 diabetes mellitus without complications; E78.00 Pure hypercholesterolemia, unspecified; E03.9 Hypothyroidism, unspecified; D53.9 Nutritional anemia, unspecified; I87.8 Other specified disorders of veins; M19.90 Unspecified osteoarthritis, unspecified site; F43.10 Post-traumatic stress disorder, unspecified; D75.89 Other specified diseases of blood and blood-forming organs; Z66 Do not resuscitate; Z88.0 Allergy status to penicillin; Z88.1 Allergy status to other antibiotic agents; Z79.82 Long term (current) use of aspirin; Z79.84 Long term (current) use of oral hypoglycemic drugs; Z79.899 Other long term (current) drug therapy
CPT/HCPCS: 36415; 51702; 70450; 71045; 80048; 80053; 80202; 81001; 82947; 83605; 83735; 85025; 87040; 93005; 93971; 96374; 97161; 97530; 99285; G0378; J0696; J1630; J1650; J7030; J7040; J7050